=== PATIENT | female | born 1955 | race Caucasian/White ===

== ENCOUNTER 2022-01-26 12:55 | Emergency (ER) | payer SELFPAY ==
--- NOTE | ~2022-01-26 | XR_ITS ---
EXAMINATION: XR foot LT min 3V DATE: 01/26/2022 13:24 INDICATION: Lateral left foot pain. Fall from ladder. TECHNIQUE: 4 views of left foot were obtained. COMPARISON: None. FINDINGS: Bone alignment is normal. There is a comminuted fracture of diaphysis and proximal metaphys is of fifth proximal phalanx. The main distal fracture fragment demonstrates 1 mm plantar displacemen t. There is mild osteoarthritis of first metatarsophalangeal joint. There are enthesophytes at the po sterior and plantar aspects of calcaneus. IMPRESSION: 1. Comminuted fracture of fifth proximal phalanx. Reviewed, dictated and finalized at location [facility].
[2022-01-26 13:03] VITALS: BP 192/85; PULSE 89; RESP 16; TEMP 37; O2SAT 98
[2022-01-26 13:23] VITALS: BP 192/85; PULSE 89; RESP 16; TEMP 37; O2SAT 98
--- NOTE | 2022-01-26 13:31 | ED.LOWEXIN ---
HPI - Extremity Injury (Lower) General Chief Complaint: Extremity Injury, Lower Stated Complaint: left foot injury Time Seen by Provider: 01/26/22 13:32 Source: patient, family, RN notes reviewed and old records reviewed Mode of arrival: ambulatory Limitations: no limitations History of Present Illness HPI Narrative: 66 year old female presents to express care with pain to lateral aspect of left foot with swelling and bruising since yesterday evening. She reports tat she stepped off of a ladder and jammed her foot into the leg of the ladder. Point tenderness along the left lateral foot at the 5th metatarsal region. Patient reports that she has applied ice to her foot with increased pain with ambulation and any weight bearing. Patient reports that her pain is 8/10 is a constant ache. MD complaint: foot injury Onset (ago): hour(s) (yesterday evening) Type of Injury: blunt Severity scale (1-10): 8 Treatments prior to arrival: cold therapy Related Data Home Medications Medication Instructions Recorded Confirmed glipizide 10 mg tablet 20 mg PO DAILY 01/26/22 01/26/22 lisinopril 40 mg tablet 40 mg PO DAILY 01/26/22 01/26/22 lovastatin 40 mg tablet 40 mg PO DAILY 01/26/22 01/26/22 metformin 850 mg tablet 850 mg PO TID 01/26/22 01/26/22 Allergies Allergy/AdvReac Type Severity Reaction Status Date / Time No Known Allergies Allergy Verified 01/26/22 13:21 Review of Systems Review of Systems: CONSTITUTIONAL: Denies fever, chills, or sweats. EYES: Denies visual changes, redness, or discharge. ENT: Denies rhinorrhea, congestion, sore throat, or otalgia. CARDIOVASCULAR: Denies chest pain, palpitations, or edema. RESPIRATORY: Denies cough or dyspnea. GASTROINTESTINAL: Denies abdominal pain, nausea, vomiting, or diarrhea. GENITOURINARY: Denies dysuria or hematuria. SKIN: Denies rash or itching. MUSCULOSKELETAL: Denies back pain,left lateral foot pain and bruising or myalgia. NEUROLOGIC: Denies headache, numbness, or weakness. PSYCHIATRIC: Denies anxiety or depression. [facility] Past Medical History Medical History (Updated 01/27/22 @ 22:44 by Belinda Kirkland NP) Diabetes Elevated cholesterol Fracture of left hand Hypertension Surgical History Surgical History (Updated 01/27/22 @ 22:24 by Belinda Kirkland NP) No history of previous surgery Social History Social History (Updated 01/27/22 @ 22:26 by Belinda Kirkland NP) Smoking packs per day: 2 Smoking cigarettes per day: 40.0 Years smoked: 36 Smoking pack-years: 72.00 Smoking status: Current every day smoker Tobacco type: cigarettes Alcohol intake: current Alcohol use details: rare Substance use: never Living arrangements: with family Gender identity (if verbalized by the patient): Female Comments At time of signature, agree with nursing past medical, surgical, social and family history. There is no relevant family history pertinent to the presenting complaint Exam Narrative: GENERAL: Well-appearing, well-nourished, and in no acute distress. HEAD: Normocephalic, atraumatic. EYES: PERRLA and EOMI. ENT: Nares clear, no rhinorrhea or epistaxis. Mucous membranes moist.TM's normal with good light reflex, throat pink with no lesions or exudates or tonsil swelling NECK: Supple.no lymphadenopathy CHEST: Clear to auscultation. No respiratory distress.SAO2 98% on room air HEART: Regular rate and rhythm. No murmur heard. Normal peripheral pulses. ABDOMEN: Soft, nontender, nondistended, normal active bowel sounds. EXTREMITIES: Normal range of motion. No edema.Exception noted to left lateral foot which is bruised and swollen with tenderness along 5th metatarsal region, circulation and sensation is intact. SKIN: Warm, dry, no rash. NEURO: No focal deficits. Alert and oriented x3. Course Course Level of Care: Express Care Visit Vital Signs Vital signs: Vital Signs Temperature 37.0 C 01/26/22 13:03 Pulse Rate 89 01/26/22 13:03 Respiratory
== END 2022-01-26 14:20 | disposition home or self-care (01) ==
PROVIDERS: Emergency Provider Registered Nurse
DX: S92.512A Displaced fracture of proximal phalanx of left lesser toe(s), initial encounter for closed fracture (principal); W22.8XXA Striking against or struck by other objects, initial encounter; E11.9 Type 2 diabetes mellitus without complications; E78.00 Pure hypercholesterolemia, unspecified; I10 Essential (primary) hypertension; F17.210 Nicotine dependence, cigarettes, uncomplicated
CPT/HCPCS: 73630; 99214; G0463

== ENCOUNTER 2023-03-09 12:18 | Emergency (ER) | payer MEDICARE, SELFPAY ==
--- NOTE | ~2023-03-09 | XR_ITS ---
EXAMINATION: XR wrist RT min 3V DATE: 03/09/2023 12:38 INDICATION: Right wrist pain one day post injury TECHNIQUE: Posteroanterior, ulnar deviation, oblique, and lateral views of the right wrist were obtai ashly. COMPARISON: none FINDINGS: Bone alignment is normal. No fracture. 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 Soft tissues are unremarkable. IMPRESSION: 1. 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 No acute osseous abnormality. Reviewed, dictated and finalized at location A. IMPRESSION: 1. 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 No acute osse ous abnormality.
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
[2023-03-09 12:29] VITALS: BP 159/65; PULSE 101; RESP 18; TEMP 36.4; O2SAT 96
== END 2023-03-09 13:03 | disposition home or self-care (01) ==
PROVIDERS: Emergency Provider Nurse Practitioner; PCP Nurse Practitioner Family
DX: S60.211A Contusion of right wrist, initial encounter (principal); W22.8XXA Striking against or struck by other objects, initial encounter; M19.031 Primary osteoarthritis, right wrist; M18.11 Unilateral primary osteoarthritis of first carpometacarpal joint, right hand; F17.210 Nicotine dependence, cigarettes, uncomplicated; E11.9 Type 2 diabetes mellitus without complications; Z79.84 Long term (current) use of oral hypoglycemic drugs; E78.00 Pure hypercholesterolemia, unspecified; I10 Essential (primary) hypertension
CPT/HCPCS: 73110; 99213; G0463

== ENCOUNTER 2023-06-28 10:55 | Emergency (ER) | payer MEDICARE, SELFPAY ==
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
[2023-06-28 11:02] VITALS: BP 201/86; PULSE 100; RESP 16; TEMP 36.5; O2SAT 96
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
== END 2023-06-28 11:47 | disposition home or self-care (01) ==
PROVIDERS: Emergency Provider Registered Nurse; PCP Nurse Practitioner Family
DX: S20.219A Contusion of unspecified front wall of thorax, initial encounter (principal); E11.9 Type 2 diabetes mellitus without complications; F17.210 Nicotine dependence, cigarettes, uncomplicated; Z79.84 Long term (current) use of oral hypoglycemic drugs; Z79.899 Other long term (current) drug therapy; W50.0XXA Accidental hit or strike by another person, initial encounter; Y92.009 Unspecified place in unspecified non-institutional (private) residence as the place of occurrence of the external cause; Y99.0 Civilian activity done for income or pay
CPT/HCPCS: 71101; 99213; G0463

== ENCOUNTER 2025-07-04 14:41 | Emergency (ER) | payer MEDICARE, SELFPAY ==
--- NOTE | ~2025-07-04 | XR_ITS ---
EXAMINATION: XR shoulder LT min 2V, 07/04/2025 15:10 PARTS CASTING MACHINE OPERATOR HISTORY: NKI, PROX HUMERUS PAIN W/MOVEMENT REFERRING DOWN COMPARISON: No comparisons available. Findings: No acute fracture or malalignment. No significant degenerative changes. Soft tissues unremarkable. Impression: No acute fracture or malalignment. Reviewed, dictated and finalized at location P. S CASTING MACHINE OPERATOR Impression: No acute fracture or malalignment.
--- OUTSIDE RECORDS SUMMARY | 2025-07-04 14:45 | XMS_ITS | Clinical Summary ---
Author Organization [facility] Address [address] [place] [id number] Phone Care Team Providers Care Rehab Manager Name Role Phone Unavailable Primary Care Provider Unavailabl e Medications SITagliptin (JANUVIA) 100 MG tablet 1 tab once daily 0 12/27/2017 Active lovastatin (MEVACOR) 40 MG tablet one tab daily 0 12/26/2017 Active glipiZIDE (GLUCOTROL XL) 10 MG 24 hr tablet two tabs daily 0 12/26/2017 Active metFORMIN (GLUCOPHAGE) 850 MG tablet one tab three times daily 0 12/26/2017 Active aspirin (ASPIRIN ADULT LOW DOSE) 81 MG EC tablet one tab daily 0 12/26/2017 Active lisinopril (PRINIVIL,ZESTRI L) 40 MG tablet One daily 11 04/11/2018 Act aki Active Problems Problem Noted Date Diagnosed Date Type 2 diabetes mellitus wit h other diabetic kidney complication 04/11/2018 Proteinuria 12/26/2017 Vitamin D deficiency 12/26/2017 Hyperlipidemia 12/26/2017 Essential (primary) hypertension 12/26/2017 Social History Tobacco Use Types Packs/Day Years Used Date Smoking Tobacco: Every Day Alcohol Use Standard Drinks/Week Comments Yes 0 (1 standard drink = 0.6 oz pure alcohol) Alcoholic Drinks/day: occasionally Comments Unknown Sex and Gender Information Value Date Recorded Sex Assigned at Not on file Legal Sex Female 9:33 AM [facility] Gender Identity Not on file Sexual Orientation Not on file Last Filed Vital Signs Vital Sign Reading Time Taken Comments Blood Pressure 179/81 04/11/2018 12:01 AM CDT Si tting, Left Pulse 87 04/11/2018 12:01 AM CDT Brac hial Temperature - - Respiratory Rate - - Oxygen Saturation - - Inhaled Oxygen Concentration - - Weight 78 kg (172 lb) 04/11/2018 12:01 AM CDT Height 165.1 cm (5' 5) 04/11/2018 12:01 AM CDT Body Mass Index 28.62 04/11/2018 12:01 AM CDT Plan of Treatment Health Maintenance Due Date Last Done Comments Pneumococcal PPSV23/PCV13 65 + Years / Low and Medium Risk (1 of 2 - PCV) 10/18/2007 Influenza Vaccine (#1) 2025
--- OUTSIDE RECORDS SUMMARY | 2025-07-04 14:45 | XMS_ITS | Data Portability ---
Author Organization [facility] Address [address] [place] [place] [address] Care Team Providers Care Emergency Medicine Physician Assistant Name Role Phone ANDRAE, ZAK Primary Care Provider Assessment Encounter Date Assessment Date Assessment LastModified by Organization Details LastModified Time 04/24/2024 04/24/2024 Ms Ivy presented in office today for follow appointment. Not available 04/29/2024 10:59:50 08/21/2024 08/21/2024 Ms. Ivy is here for a follow-up, reporting no new symptoms or concerns. No changes in health since the last visit. Not available 09/16/2024 15:21:22 09/18/2024 09/18/2024 Ms. Ivy presents in office today for follow up appointment. Not available 10/05/2024 18:14:32 01/15/2025 01/15/2025 Ms. Ivy is here for a follow-up, reporting no new symptoms or concerns. No changes in health since the last visit. Not available 01/17/2025 09:17:30 03/17/2025 03/17/2025 Ms. Ivy presents for follow-up and Medicare Annual Wellness Visit. She reports experiencing intermittent weakness and numbness in the left arm over the past several weeks. She denies associated pain, trauma, or recent injury. The symptoms are not constant but occur sporadically throughout the day. Patient suspects the symptoms may be related to a prior rotator cuff injury. No recent changes in activity or known aggravating or relieving factors. No associated neck pain, chest pain, or systemic symptoms reported. Not available 03/17/2025 16:22:19 Plan of Treatment Reminders Order Date Submit Date Provider Last Modified By Organization Details Last Modified Time Details Appointments ANY 15 2025 02:45P M ZAK ABEBE, YAKELIN Not available Not available Not available Lab CMP, serum or plasma 2024 025 [facility], [address] [facility], [place], [address], 03/18/2025 12:12:18 CBC w/ auto diff 2024 025 [facility], [address] [facility], [place], [address], 03/18/2025 12:12:19 vitamin D, 25-hydro xy, total, serum 2024 025 [facility], [address] [facility], [facility] [address], [place], [address], 03/18/2025 12:12:21 microalb umin/cre atinine, mass ratio, urine 2024 025 [facility], [address] [facility], [facility] [address], [place], [address], 03/18/2025 12:12:16 lipid panel, serum 2024 025 [facility], [address] [facility], [facility] [address], [place], [address], 03/18/2025 12:12:17 Referral None recorded . Procedures None recorded . Surgeries None recorded . Imaging CT, head + brain, w/o contrast 2024 025 [facility], [address] [place], [address], 05/17/2025 00:55:30 US, duplex, carotid artery [address] [address] [place], [address], 04/10/2025 17:42:17 XR, arthrogr am, shoulder 2024 025 [facility], [address] [facility], [place], [address], 06/17/2025 15:56:10 Medication Orders hydrochl orothiaz chevy 12.5 mg tablet 2024 025 [facility], [address] [place] [address], [address], 08/21/2024 16:06:21 Patient TargetsNo targets recorded. Patient Instructions Encounter Date Encounter Id Patient Instructions Last Modified By Organization Details Last Modified Time 04/24/2024 [id number] - Always present to ER or Urgent Care with any progression of/alarming symptoms, significant changes in symptoms or any concerning or urgent matters Not available 04/29/2024 10:59:46 08/21/2024 [id number] Quitting Tobacco : Care Instructions Not available 09/16/2024 15:23:26 - Always present to ER or Urgent Care with any progression of/alarming symptoms, significant changes in symptoms or any concerning or urgent matters Not available 08/21/2024 16:03:45 09/18/2024 [id number] Quitting Tobacco : Care Instructions Not available 10/05/2024 18:11:48 A healthy lifestyle: care instructions Not available 10/05/2024 18:11:48 - Always present to ER or Urgent Care with any progression of/alarming symptoms, significant changes in symptoms or any concerning or urgent matters Not available 10/05/2024 18:14:55 01/15/2025 [id number] - Always present to ER or Urgent Care with any progression of/alarming symptoms, significant changes in symptoms or any concerning or urgent matters Not available 01/17/2025 09:12:20 03/17/2025 [id number] advance care planning: care instructions Not available 03/17/2025 15:43:02 preventing falls : care instructions Not available 03/17/2025 15:43:02 Quitting Tobacco : Care Instructions Not available 03/17/2025 15:43:02 Medicare Wellnes s Preventive Checklist Not available 03/17/2025 15:43:02 eating healthy foods: care instructions Not available 03/17/2025 15:43:02 AD8 Dementia Screening Interview Not available 03/17/2025 15:43:02 - Always present to ER or Urgent Care with any progression of/alarming symptoms, significant changes in symptoms or any concerning or urgent matters Not available 03/17/2025 16:02:38 Reason for Referral None Reported. Results Created Date Observation Date Name Description Value Unit Range Abnormal Flag Note LastModifiedBy Organization Detail LastModifiedTime 07/30/20 24 07/30/2024 Hemog lobin A1c/H emogl obin. total in Blood hemoglobin A1C/hemoglob in.total in blood 8.4 % low: 4%high : 6% abnormal HGB-A 1C 8.4 (A) 4 - 6 % Not Available Not Available 11/12/2024 12:11:43 07/30/20 24 07/30/2024 Hemog lobin A1c/H emogl obin. total in Blood interpretati on and review of laboratory results Abnorm al Not Available Not Available 12:11:43 10/30/19 25 10/29/2024 Hemog lobin A1c/H emogl obin. total in Blood hemoglobin A1C/hemoglob in.total in blood 8.3 % low: 4%high : 6% abnormal HGB-A 1C 8.3 (A) 4 - 6 % Not Available Not Available 11/12/2024 12:12:43 10/30/19 25 10/29/2024 Hemog lobin A1c/H emogl obin. total in Blood interpretati on and review of laboratory results Abnorm al Not Available Not Available 12:12:43 01/31/20 25 01/30/2025 Hemog lobin A1c/H emogl obin. total in Blood hemoglobin A1C/hemoglob in.total in blood 7.3 % low: 4%high : 6% abnormal Not Available Not Available 03/17/2025 04:55:11 01/31/20 25 01/30/2025 Hemog lobin A1c/H emogl obin. total in Blood interpretati on and review of laboratory results Abnorm al Not Available Not Available 04:55:11 03/17/2003/18/2025 ALBUM IN/CR EAT RATIO , RANDO M UR creatinine, urine 17.2 mg/dL notest ab. Not Available [facility] ([email or web address] [email or web address]) [address] [place], [address], 03/18/2025 12:12:16 03/17/20 25 03/18/2025 ALBUM IN/CR EAT RATIO , RANDO M UR albumin, urine <3.0 ug/mL notest ab. Not Available [facility] ([email or web address] [email or web address]) [address] [place], [address], 03/18/2025 12:12:16 03/17/20 25 03/18/2025 ALBUM IN/CR EAT RATIO , RANDO M UR alb/creat ratio <17 Nolvia l: 0 - 29 Moder ately incre ased: 30 - 300 Sever komal incre ased: >300 Not Available [facility] ([email or web address] [email or web address]) [address] [place], [address], 03/18/2025 12:12:16 03/17/20 25 03/18/2025 LIPID PANEL cholesterol, total 142 mg/dL 100-19 9 Not Available [facility] ([email or web address] [email or web address]) [address] [place], [address], 03/18/2025 12:12:17 03/17/20 25 03/18/2025 LIPID PANEL triglyceride s 283 mg/dL 0-149 above high normal Not Available [facility] ([email or web address]) [address] [place], [address], 03/18/2025 12:12:17 03/17/20 25 03/18/2025 LIPID PANEL HDL cholesterol 37 mg/dL >39 below low normal Not Available [facility] ([email or web address]) [address] [place], [address], 03/18/2025 12:12:17 03/17/20 25 03/18/2025 LIPID PANEL VLDL cholesterol sunil 45 mg/dL 5-40 above high normal Not Available [facility] ([facility]) [address] [place], [address], 03/18/2025 12:12:17 03/17/20 25 03/18/2025 LIPID PANEL LDL chol calc ([facility]) 60 mg/dL 0-99 Not Available [facility] ([facility]) [address] [place], [address], 03/18/2025 12:12:17 03/17/20 25 03/18/2025 COMP. METAB OLIC PANEL (14) glucose 221 mg/dL 70-99 above high normal Not Available [facility] ([facility]) [address] [place], [address], 03/18/2025 12:12:18 03/17/20 25 03/18/2025 COMP. METAB OLIC PANEL (14) BUN 9 mg/dL 8-27 Not Available [facility] ([facility]) [address] [place], [address], 03/18/2025 12:12:18 03/17/20 25 03/18/2025 COMP. METAB OLIC PANEL (14) creatinine 0.56 mg/dL 0.57-1 .00 below low normal Not Available [facility] ([facility]) [address] [place], [address], 03/18/2025 12:12:18 03/17/20 25 03/18/2025 COMP. METAB OLIC PANEL (14) eGFR 100 mL/mi n/1.7 3 >59 Not Available [facility] ([facility]) [address] [place], [address], 03/18/2025 12:12:18 03/17/20 25 03/18/2025 COMP. METAB OLIC PANEL (14) BUN/creatini ne ratio 16 12-28 Not Available [facility] ([facility]) [address] [facility] [place], [address], 03/18/2025 12:12:18 03/17/20 25 03/18/2025 COMP. METAB OLIC PANEL (14) sodium 131 mmol/ L 134-14 4 below low normal Not Available [facility] ([facility]) [address] [facility] [place], [address], 03/18/2025 12:12:18 03/17/20 25 03/18/2025 COMP. METAB OLIC PANEL (14) potassium 4.2 mmol/ L 3.5-5. 2 Not Available [facility] ([facility]) [address] [facility] [place], [address], 03/18/2025 12:12:18 03/17/20 25 03/18/2025 COMP. METAB OLIC PANEL (14) chloride 97 mmol/ L 96-106 Not Available [facility] ([facility]) [address] [facility] [place], [address], 03/18/2025 12:12:18 03/17/20 25 03/18/2025 COMP. METAB OLIC PANEL (14) carbon dioxide, total 18 mmol/ L 20-29 below low normal Not Available [facility] ([facility]) [address] [facility] [place], [address], 03/18/2025 12:12:18 03/17/20 25 03/18/2025 COMP. METAB OLIC PANEL (14) calcium 10.5 mg/dL 8.7-10 .3 above high normal Not Available [facility] ([facility]) [address] [facility] [place], [address], 03/18/2025 12:12:18 03/17/20 25 03/18/2025 COMP. METAB OLIC PANEL (14) protein, total 6.8 g/dL 6.0-8. 5 Not Available [facility] ([facility]) [address] [facility], [place], [address], 03/18/2025 12:12:18 03/17/20 25 03/18/2025 COMP. METAB OLIC PANEL (14) albumin 4.7 g/dL 3.9-4. 9 Not Available [facility] ([facility]) [address] [facility], [place], [address], 03/18/2025 12:12:18 03/17/20 25 03/18/2025 COMP. METAB OLIC PANEL (14) globulin, total 2.1 g/dL 1.5-4. 5 Not Available [facility] ([facility]) [address] [facility], [place], [address], 03/18/2025 12:12:18 03/17/20 25 03/18/2025 COMP. METAB OLIC PANEL (14) bilirubin, total <0.2 mg/dL 0.0-1. 2 Not Available [facility] ([facility]) [address] [facility], [place], [address], 03/18/2025 12:12:18 03/17/20 25 03/18/2025 COMP. METAB OLIC PANEL (14) alkaline phosphatase 70 IU/L 44-121 Not Available [facility] ([facility]) [address] [facility], [place], [address], 03/18/2025 12:12:18 03/17/20 25 03/18/2025 COMP. METAB OLIC PANEL (14) AST (SGOT) 18 IU/L 0-40 Not Available [facility] ([facility]) [address] [facility], [place], [address], 03/18/2025 12:12:18 03/17/20 25 03/18/2025 COMP. METAB OLIC PANEL (14) ALT (SGPT) 11 IU/L 0-32 Not Available [facility] ([facility]) [address] [facility], [place], [address], 03/18/2025 12:12:18 03/17/2003/18/2025 CBC WITH DIFFE RENTI AL/PL ATELE T WBC 10.6 x10e3 /uL 3.4-10 .8 Not Available [facility] ([facility]) [address] [facility], [place], [address], 03/18/2025 12:12:19 03/17/2003/18/2025 CBC WITH DIFFE RENTI AL/PL ATELE T RBC 4.98 x10e6 /uL 3.77-5 .28 Not Available [facility] ([facility]) [address] [place], [address], 03/18/2025 12:12:19 03/17/2003/18/2025 CBC WITH DIFFE RENTI AL/PL ATELE T hemoglobin 15.8 g/dL 11.1-1 5.9 Not Available [facility] ([facility]) [address] [place], [address], 03/18/2025 12:12:19 03/17/2003/18/2025 CBC WITH DIFFE RENTI AL/PL ATELE T hematocrit 47.8 % 34.0-4 6.6 above high normal Not Available [facility] ([facility]) [address] [place], [address], 03/18/2025 12:12:19 03/17/2003/18/2025 CBC WITH DIFFE RENTI AL/PL ATELE T MCV 96 fL 79-97 Not Available [facility] ([facility]) [address] [place], [address], 03/18/2025 12:12:19 03/17/2003/18/2025 CBC WITH DIFFE RENTI AL/PL ATELE T MCH 31.7 pg 26.6-3 3.0 Not Available [facility] ([facility]) [address] [place], [address], 03/18/2025 12:12:19 03/17/2003/18/2025 CBC WITH DIFFE RENTI AL/PL ATELE T MCHC 33.1 g/dL 31.5-3 5.7 Not Available [facility] ([facility]) [address] [facility], [place], [address], 03/18/2025 12:12:19 03/17/2003/18/2025 CBC WITH DIFFE RENTI AL/PL ATELE T RDW 11.4 % 11.7-1 5.4 below low normal Not Available [facility] ([facility]) [address] [facility], [place], [address], 03/18/2025 12:12:19 03/17/2003/18/2025 CBC WITH DIFFE RENTI AL/PL ATELE T platelets 404 x10e3 /uL 150-45 0 Not Available [facility] ([facility]) [address] [facility], [place], [address], 03/18/2025 12:12:19 03/17/2003/18/2025 CBC WITH DIFFE RENTI AL/PL ATELE T neutrophils 58 % notest ab. Not Available [facility] ([facility]) [address] [facility], [place], [address], 03/18/2025 12:12:19 03/17/2003/18/2025 CBC WITH DIFFE RENTI AL/PL ATELE T lymphs 31 % notest ab. Not Available [facility] ([facility]) [address] [facility], [place], [address], 03/18/2025 12:12:19 03/17/2003/18/2025 CBC WITH DIFFE RENTI AL/PL ATELE T monocytes 7 % notest ab. Not Available [facility] ([facility]) [address] [place], [address], 03/18/2025 12:12:19 03/17/2003/18/2025 CBC WITH DIFFE RENTI AL/PL ATELE T eos 3 % notest ab. Not Available [facility] ([facility]) [address] [facility], [place], [address], 03/18/2025 12:12:19 03/17/2003/18/2025 CBC WITH DIFFE RENTI AL/PL ATELE T basos 1 % notest ab. Not Available [facility] ([facility]) [address] [facility], [place], [address], 03/18/2025 12:12:19 03/17/2003/18/2025 CBC WITH DIFFE RENTI AL/PL ATELE T neutrophils (absolute) 6.1 x10e3 /uL 1.4-7. 0 Not Available [facility] ([facility]) [address] [place], [address], 03/18/2025 12:12:19 03/17/2003/18/2025 CBC WITH DIFFE RENTI AL/PL ATELE T lymphs (absolute) 3.3 x10e3 /uL 0.7-3. 1 above high normal Not Available [facility] ([facility]) [address] [place], [address], 03/18/2025 12:12:19 03/17/2003/18/2025 CBC WITH DIFFE RENTI AL/PL ATELE T monocytes(ab solute) 0.8 x10e3 /uL 0.1-0. 9 Not Available [facility] ([facility]) [address] [place], [address], 03/18/2025 12:12:19 03/17/2003/18/2025 CBC WITH DIFFE RENTI AL/PL ATELE T eos (absolute) 0.4 x10e3 /uL 0.0-0. 4 Not Available [facility] ([facility]) [address] [place], [address], 03/18/2025 12:12:19 03/17/2003/18/2025 CBC WITH DIFFE RENTI AL/PL ATELE T baso (absolute) 0.1 x10e3 /uL 0.0-0. 2 Not Available [facility] ([facility]) [address] [facility], [place], [address], 03/18/2025 12:12:19 03/17/2003/18/2025 CBC WITH DIFFE RENTI AL/PL ATELE T immature granulocytes 0 % notest ab. Not Available [facility] ([facility]) [address] [facility], [place], [address], 03/18/2025 12:12:19 03/17/2003/18/2025 CBC WITH DIFFE RENTI AL/PL ATELE T immature grans (abs) 0.0 x10e3 /uL 0.0-0. 1 Not Available [facility] ([facility]) [address] [facility], [place], [address], 03/18/2025 12:12:19 03/17/2003/18/2025 VITAM IN D, 25-HY DROXY vitamin D, 25-hydroxy 28.1 NG/mL 30.0-1 00.0 below low normal Vitam in D defic iency has been defin ed by the Insti tute of Medic ine and an Endoc rine Socie ty pract ice guide line as a level of serum 25-OH vitam in D less than 20 ng/mL (1,2) . The Endoc rine Socie ty went on to furth er defin e vitam in D insuf ficie ncy as a level betwe en 21 and 29 ng/mL (2). 1. IOM (Inst itute of Medic ine). 2010. Dieta ry refer ence intak es for calci um and D. Alfonso christine DC: The [facility] Press . 2. Ericka maya MF, Baltazar garduno [place], [place] off-F errar i PICKETT, et al. Evalu ation , treat ment, and preve ntion of vitam in D defic iency : an Endoc rine Socie ty clini sunil pract ice guide line. JCEM. 2010; 96(7) :1911 -30. Not Available [facility] ([facility]) [address] [facility], [place], [address], 03/18/2025 12:12:21 05/02/20 25 05/02/2025 HbA1c (hemo globi n A1c), blood HbA1C (hemoglobin A1C), blood 7 % low: 4%high : 6% abnormal Not Available Not Available 05/12/2025 15:43:10 05/02/20 25 05/02/2025 HbA1c (hemo globi n A1c), blood lab interpretati on Abnorm al Not Available Not Available 15:43:10 04/10/20 25 04/01/2025 US, samir x, kylah id arter y No observ ation record ed. [address] [place], [address], 04/15/2025 11:12:24 05/17/20 25 05/16/2025 CT, head + brain , w/o contr ast No observ ation record ed. [address] [place], [address], 05/22/2025 09:58:15 Result Notes None recorded. Problems Name Problem SNOMED Code Status Onset Date Resolution Date Notes Provider Name and Address Organization Details Recorded Time Hyperlipi demia 49729519 Active ZAK ABEBE NP Attn: Samy ortiz,[address] [facility], [place], [address], [facility] 2 09:48:17 Diabetes mellitus 60857184 Active ZAK ABEBE NP Attn: Samy g,[address] [facility], [place], [address], [facility] - [facility] 2 09:48:17 Chronic obstructi ve pulmonary disease 58431336 Active Myron slater, [place] - [facility] 6 10:30:50 Smoker 27354955 Completed 08/28/2019 Angelika Moya null, [place] - [facility] 0 10:53:03 Vitamin D deficienc y 57412128 Active Myron Moon [place], [place] - [facility] 4 11:56:54 Hypertens aki disorder 53867868 Active 2015 Arianna Ayala RN [place] - [facility] 7 15:23:13 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 Angeilka Moya [place] - [facility] 8 23:53:52 Adult health examinati on Active 2017 Angel[place] [facility] 8 23:58:30 Body mass index 25-29 - overweigh t 102662335 Active 2017 ZAK ABEBE NP Attn: Samy ortiz,[address] [place], [address], [place] - [facility] 2 09:48:17 Biceps tendiniti s 282045072 Active 2017 Angelika [place] [facility] 8 12:09:55 Osteoarth ritis 772646095 Active 2018 Angel[place] [facility] 9 16:47:24 Tobacco user 793194598 Active 2019 ZAK ABEBE NP Attn: Samy g,[address] [place], [address], [place] - [facility] 2 09:48:16 Well controlle d type 2 diabetes mellitus 000036312 Active 2019 ZAK ABEBE NP Attn: Samy g,[address] [place], [address], [place] - [facility] 2 09:48:17 Noncompli ance with medicatio n regimen 998512558 Active 2022 ZAK ABEBE NP Attn: Samy g,[address] [place], [address], [place] - [facility] 3 15:33:49 Overweigh t 383938069 Active 2022 ZAK ABEBE NP Attn: Samy ortiz,[address] [facility], [place], [address], [place] - [facility] 3 15:36:55 Uncontrol led type 2 diabetes mellitus 194841803 Active 2022 ZAK ABEBE NP Attn: Samy ortiz,[address] [facility], [place], [address], [place] [facility] 4 14:58:07 [place] py declined 328293934179 100 Active 2023 ZAK ABEBE NP Attn: Samy ortiz,[address] [facility], [place], [address], [place] - [facility] 4 10:43:38 HIV screening declined 698951534537 100 Active 2023 ZKA ABEBE NP Attn: Samy ortiz,[address] [facility], [place], [address], [place] - [facility] 4 21:14:32 Pain of left shoulder joint 255142129465 [address]5824 Active 2024 ZAK ABEBE NP Attn: Samy ortiz,[address] [facility], [place], [address], [place] - [facility] 5 21:50:46 Problem Notes None recorded. Medical Equipment None Reported. Allergies No known drug allergies Medications Name Sig Start Date Stop Date Status Note LastModified by Organization Details LastModified Time cyclobenza silvia 10 mg tablet TAKE 1 TABLET BY MOUTH THREE TIMES DAILY NEEDED 06/25 completed Not Available Not Available Not Available glipizide ER 10 mg tablet, extended release 24 hr TAKE 1 TABLET BY MOUTH TWICE DAILY 2024 active Not Available Not Available Not Avai lable lisinopril 20 mg tablet TAKE 1 TABLET BY MOUTH ONCE DAILY DIRECTED 06/01 completed Not Available Not Available Not Available prednisone 20 mg tablet TAKE 1 TABLET BY MOUTH TWICE DAILY 08/24 completed Not Available Not Available Not Available lovastatin 40 mg tablet Take 1 tablet by mouth once daily 2024 active Not Available Not Available Not Avai lable lidocaine 4 % topical cream Apply 1 applicat ion twice a day by topical route as needed. 08/28 completed Not Available Not Available Not Available metformin 850 mg tablet TAKE 1 TABLET BY MOUTH THREE TIMES DAILY WITH A MEAL 2024 active Not Available Not Available Not Avai lable amlodipine 5 mg tablet TAKE 1 TABLET BY MOUTH ONCE DAILY 03/21 completed Not Available Not Available Not Available Glucotrol XL 5 mg tablet,ext ended release Take 1 tablet every day by oral route. 12/10 completed Not Available Not Available Not Available Tessalon Perles 100 mg capsule Take 1 capsule 3 times a day by oral route as needed. 08/29 completed Not Available Not Available Not Available amlodipine 10 mg tablet Take 1 tablet by mouth once daily 2024 active Not Available Not Available Not Avai lable metformin 1,000 mg tablet TAKE ONE TABLET BY MOUTH TWICE DAILY WITH MEALS 08/30 completed Not Available Not Available Not Available lisinopril 30 mg tablet TAKE 1 TABLET BY MOUTH ONCE DAILY 01/27 completed Not Available Not Available Not Available Aspir-81 mg tablet,del ayed release Take 1 tablet every day by oral route. 08/24 completed Not Available Not Available Not Available Vitamin D2 1,250 mcg (50,000 unit) capsule Take 1 capsule every week by oral route. 01/31 completed Not Available Not Available Not Available lisinopril 40 mg tablet Take 1 tablet by mouth once daily 2024 active Not Available Not Available Not Avai lable Spiriva with HandiHaler 18 mcg and inhalation capsules Inhale 1 capsule every day by inhalati on route. 11/19 completed Not Available Not Available Not Available Januvia 100 mg tablet TAKE ONE TABLET BY MOUTH EVERY DAY 02/23 completed Not Available Not Available Not Available hydrochlor othiazide 12.5 mg tablet Take 1 tablet by mouth once daily active Not Available Not Available No t Available Mucinex 1,200 mg tablet, extended release Take 1 tablet twice a day by oral route as directed . 08/29 completed Not Available Not Available Not Available Tudorza Pressair 400 mcg/actuat ion breath activated Inhale 1 puff every 12 hours by inhalati on route for 60 days. 08/30 completed 2 month sample issued Not Available Not Available Not Available Invokana 100 mg tablet TAKE ONE TABLET BY MOUTH EVERY DAY 03/21 completed Not Available Not Available Not Available Jardiance 25 mg tablet TAKE ONE TABLET BY MOUTH EVERY DAY 05/13 completed Not Available Not Available Not Available Flonase Allergy Relief 50 mcg/actuat ion nasal spray,susp ension [place] 1 spray every day by intranas al route. 08/29 completed Not Available Not Available Not Available ProAir RespiClick 90 mcg/actuat ion breath activated Inhale 2 puffs every 4-6 hours by inhalati on route as needed. 06/25 completed Not Available Not Available Not Available Rybelsus 3 mg tablet Take 1 tablet every day by oral route for 30 days. 05/02 completed Not Available Not Available Not Available Vitals Date Recorded Body height Body mass index (BMI) Body weight Oxygen saturation Heart rate Respiratory rate Body temperature Systolic And Diastolic Provider Name and Address Organization Details Last Updated DateTime 5 165.1 cm 25.8 kg/m2 77613.2 2 g 94 % 98 /min 18 /min 97 [degF] 150/74 mm[Hg] Janet Bermudez LPN [place] - [facility] 5 15:47:06 Date Recorded Body height Body mass index (BMI) Body weight Oxygen saturation Heart rate Respiratory rate Body temperature Systolic And Diastolic Provider Name and Address Organization Details Last Updated DateTime 5 165.1 cm 25.1 kg/m2 04880.4 5 g 95 % 101 /min 16 /min 97.1 [degF] 122/79 mm[Hg] Sho Zavala MA [place] - [facility] 5 15:36:48 Date Recorded Body height Respiratory rate Body mass index (BMI) Body weight Body temperature Heart rate Oxygen saturation Systolic And Diastolic Provider Name and Address Organization Details Last Updated DateTime 5 165.1 cm 16 /min 24.5 kg/m2 97367.8 8 g 97.1 [degF] 91 /min 97 % 147/77 mm[Hg] Faviola Palacio MA [facility] 5 15:28:09 Date Recorded Body height Respiratory rate Body mass index (BMI) Body weight Body temperature Heart rate Oxygen saturation Systolic And Diastolic Provider Name and Address Organization Details Last Updated DateTime 5 165.1 cm 16 /min 25 kg/m2 75256.9 6 g 96.6 [degF] 91 /min 95 % 116/74 mm[Hg] Faviola Palacio MA [facility] 5 15:38:10 Date Recorded Body height Body mass index (BMI) Body weight Respiratory rate Oxygen saturation Heart rate Body temperature Systolic And Diastolic Provider Name and Address Organization Details Last Updated DateTime 4 165.1 cm 27.1 kg/m2 11935.2 g 18 /min 93 % 84 /min 97.2 [degF] 119/73 mm[Hg] BAUTISTA Mills [facility] 4 15:52:39 Social History Question Answer Notes LastModified by Organizat ion Details LastModified Time Tobacco Smoking Status Current Every Day Smoker Xiomara Najera MA [facility], [place] - [facility] 01/26/2021 10:41:54 Are You Blind Or Do You Have Difficulty Seeing? Yes Reading Glasses Information not available 01/26/2021 What Is Your Level Of Caffeine Consumption? Moderate 3 Cups Coffee Per Day 1 Diet Soda [email or web address] Information not available 09/18/2024 In The 14 Days Before Symptom Onset, Have You Had Close Contact With A Laboratory-confir med COVID-19 While That Case Was Ill? No Information not available 07/28/2021 In The 14 Days Before Symptom Onset, Have You Had Close Contact With A Person Who Is Under Investigation For COVID-19 While That Person Was Ill? No Information not available 07/28/2021 Have You Been To An Area Known To Be High Risk For COVID-19? No Information not available 07/28/2021 Are You Deaf Or Do You Have Serious Difficulty Hearing? No Information not available 01/26/2021 What Type Of Diet Are You Following? REGULAR Information not available 07/28/2021 Which Illicit Or Recreational Drugs Have You Used? Pt Denies [email or web address] Information not available 08/29/2017 Are There Any Guns Present In Your Home? No [email or web address] Information not available 07/18/2014 Live Alone Or With Others? With Others Information not available 07/18/2014 Do You Have A High School Diploma Or Higher Education? Yes Information not available 01/26/2021 Do You Sometimes Have To Miss Your Medical Appointments Due To Difficult Getting Transportation? No Information not available 01/26/2021 Do You Feel Unfairly Treated Due To Things Such As Race, Age, Gender, Disability Or Some Other Reason? No Information not available 01/26/2021 Do You Feel Physically And Emotionally Safe While Living At Home? Yes Information not available 01/26/2021 Do You Feel Physically And Emotionally Safe In Your Neighborhood Or Other Public Places? Yes Information not available 01/26/2021 What Was The Date Of Your Most Recent Tobacco Screening? 03/17/2025 Information not available 03/17/2025 What Is Your Current Pack Years? [email or web address] years Information not available 10/20/2022 What Is Your Relationship Status? Information not available 01/26/2021 Do You Use Your Seat Belt Or Car Seat Routinely? Yes Information not available 07/28/2021 Smoke Alarm In Home Yes [email or web address] Information not available 07/18/2014 Do You Have Smoke And Carbon Monoxide Detectors In Your Home? Yes Information not available 01/26/2021 At What Age Did You Start Smoking Tobacco? 18 [email or web address] Information not available 07/18/2014 Are You Passively Exposed To Smoke? Yes Information no t available 01/26/2021 How Much Tobacco Do You Smoke? 2 PPD little Less Sometimes [email or web address] Information not available 04/24/2024 Do You Use Sunscreen Routinely? Yes Information not available 07/18/2014 Has Tobacco Cessation Counseling Been Provided? Yes Information not available 01/26/2021 On What Date Was Tobacco Cessation Counseling Provided? 03/17/2025 Information not available 03/17/2025 How Many Years Have You Smoked Tobacco? 49 Information not available 10/20/2022 Sex: Female Functional Status Question Answer Note LastModified by Organizat ion Details LastModified Time Do you use any illicit or recreational drugs? No Information not available 01/26/2021 Do you or have you ever used any other forms of tobacco or nicotine? No Information not available 01/26/2021 What is your level of alcohol consumption? None clean Xs 6mo Information not available 01/26/2021 Are you currently employed? No Information not available 01/26/2021 Are you able to care for yourself independently? Yes [email or web address] Information not available 07/18/2014 What is your exercise level? Moderate Gym Information not available 02/23/2022 Mental Status Question Answer Note LastModified by Organization D etails LastModified Time Do you feel stressed (tense, restless, nervous, or anxious, or unable to sleep at night)? [id number] Information not available 01/26/2021 Family History Relationship Description Onset Age of this Age Resolved Age Notes LastModified by Organization Details LastModified Time Mother Diabetes mellitus [email or web address] Not available 07/18 11:27:45 Mother Malignant neoplasm of stomach 80 [email or web address] Not available 2017 12:01:09 Father Heart disease 60 [email or web address] Not available 2017 12:00:43 Medical History Condition Response Coronary Artery Disease N Other N High Blood Pressure Y Atrial Fibrillation N Thyroid Problems N Kidney or Bladder Problems N GI Problems N Depression N COPD N Blood Clots N Skin Problems N Eating Disorder N Anemia N Heart Attack (ME) N Anxiety Disorder N Diabetes Y Muscle, Joint, or Bone Problems N Seizures/Epilepsy N Acid Reflux (GERD) N Cancer N Stroke N Asthma N Allergies N ADHD N Substance Abuse N High Cholesterol Y Hepatitis N Liver Disease N Schizophrenia N Headaches N Heart Failure N Osteoporosis N Gynecological HistoryNo gynecological history recorded. Obstetrics History GPAL:G 0 P 0 0 0 0 Immunizations Vaccine Type Date Status Note Provider Nam e and Address Organization Details Recorded Time COVID-19 vaccine, vector-nr, rS-Ad26, PF, 0.5 mL 1 completed ZAK ABEBE NP Attn: Accounting,[address] , [place], [address], [facility] - [facility] 01/19/2023 10:53:38 pneumococcal polysaccharide PPV23 5 completed Not Available [facility] 08/31/2019 02:29:46 Past Encounters Encounter ID Performer Location Encounter Start Date Encounter Closed Date Diagnosis/Indication Diagnosis SNOMED-CT Code Diagnosis ICD10 Code Diagnosis IMO Codes Diagnosis Note MD [place] [facility] [address] [place] [address] 07/18/2014 10:39:27 07/18/2014 11:58:40 Diabetes mellitus 11038947 Smoker 29782788 Vitamin D deficiency 27766814 [id number] MD [place] Mcrae ([facility] [address] [place] [address] 12/09/2014 10:57:52 12/09/2014 12:35:39 Adult health examination 077218847 Diabetes mellitus 49976599 Smoker 25728887 [id number] MD [place] Mcrae ([facility] [address] [place] [address] 04/10/2015 10:29:20 04/10/2015 11:22:11 Diabetes mellitus 48030209 Chronic ob structive pulmonary disease 65651686 down to 3 cigarettes daily. plans to quit. [id number] MD [place] Mcrae ([facility] [address] [place] [address] 08/18/2015 09:25:19 08/18/2015 10:52:08 Chronic obstructive pulmonary disease 63269961 J44.9 down to 3 cigarettes daily. plans to quit. Never got prescribed inhalers due to cost. Diabetes mellitus 716159 09 E11.9 Smoker 30156989 F17.210 Down to less than a pack aday. Patient will wean off on her own. Hyperlipidemia 96066577 E78.5 [id number] MD [place] Mcrae ([facility] [address] [place] [address] 12/21/2015 08:52:45 12/21/2015 09:52:03 Adult health examination 054546090 Z00.01 Patient no [facility] 731217773 Z91.19 Patient has been referred for colonoscop y, eye exam, bone density, mammogram but is refusing because she can't afford the co-pay and has not inquired at [facility] dept for IBCCP. She continues to smoke. Diabetes mellitus 860569 09 E11.9 [id number] MD [place] Andre ([facility]) [address] [place] [address] 07/15/2016 10:08:18 07/15/2016 10:49:32 Diabetes mellitus 21833590 E11.9 Counseled on DM and medication s-will continue current doses of medication , advised to continue glucose testing daily and to keep log. Essential hypertension 29381787 I10 Counseled on HTN and medication . Encouraged to monitor blood pressures with goal <140/90. Encouraged healthy diet and exercise. Counseled on smoking cessation. [id number] MD [place] Andre ([facility]) [address] [place] [address] 12/23/2016 08:51:12 12/23/2016 12:06:03 Diabetes mellitus 86791308 E11.9 Counseled on DM and medication s-will continue current doses of medication , advised to continue glucose testing daily and to keep log. Essential hypertension 66519466 I10 Counseled on HTN and medication . Encouraged to monitor blood pressures with goal <140/90. Encouraged healthy diet and exercise. Counseled on smoking cessation. Chronic ob structive pulmonary disease 10827327 J44.9 Counseled on COPD and medication s and the importance of compliance , smoking cessation advised Upper resp iratory infection 93288449 J06.9 Counseled on URI and medication s-Warm salt water gargles, rest, increase fluids. Tylenol/Ib uprofen for pain/fever , humidifier in the house. [id number] MD [place] H[facility] ([facility]) [address] [place] [address] 08/29/2017 11:28:50 08/31/2017 10:06:07 Vitamin D deficiency 25131651 E55.9 Hx of, check level. Addendum: def, start high dose. Then continue with OTC. Hyperlipidemia 90174989 E78.5 On Lovastatin 40mg daily. Check lipid level. Addendum: Advised compliance and lifestyle. Recheck in 6 months. Diabetes mellitus 276820 09 E11.9 Denies neuropathy . Will recheck all labs today. Continue Metformin 1000mg BID and Glipizide ER 10mg two tab daily. Addendum: A1C 9.5. Proteinuri a. Refer to Nephrology . Unsure compliance . Inc Metformin to 850mg TID and continue Glipizide ER 20mg daily. Ask about vision and neuropathy next visit. She will see eye doctor. RTC in 3mo. Smoker 41987828 F17.200 Self-cutti ng down. Hypertensive disorder 38 643595 I10 BP wnl on Lisinopril 20mg. Contineu the same. Chronic ob structive pulmonary disease 82244783 J44.9 Not dx through imagings or PFT. Controlled on Proair only. No insurance. Prefers to defer PFT. Proteinuria 04939080 R80 .9 Addendum: Proteinuri a on urine test. Pt declined Nephrology due to finance. Adult heal th examination 443866357 Z00.00 - Due to no insurance, pt prefers to defer all preventati ve screenings : mammogram, PAP smear, colonoscop y.- Declined vaccines. Body mass index 25-29 - overweight 110366381 Z68.28 [id number] MD [place] HAN ([facility]) [address] [place] [address] 11/27/2017 09:24:07 12/08/2017 11:01:32 Hypertensive disorder 26019826 I10 BP borderline . On Lisinopril 20mg. Pt declined BP kit. Continue the same. Proteinuria 29560846 R80 .9 08/2017: Proteinuri a on urine test. Pt declined Nephrology due to finance. Vitamin D deficiency 347 06175 E55.9 08/2017: def, start high dose. Then continue with OTC. 11/2017: Finished high dose. Not on supplement . start another high dose Hyperlipidemia 76542319 E78.5 08/2017: On Lovastatin 40mg daily. Check lipid level. Addendum: Advised compliance and lifestyle. Recheck in 6 months. 11/2017: T172 / TG 228 / LDL 88, better, need to take statin as prescribed . Diabetes mellitus 153098 09 E11.9 Pending eye. No neuropathy . 08/2017: Denies neuropathy . Will recheck all labs today. Continue Metformin 1000mg BID and Glipizide ER 10mg two tab daily. Addendum: A1C 9.5. Proteinuri a. Refer to Nephrology . Unsure compliance . Inc Metformin to 850mg TID and continue Glipizide ER 20mg daily. Ask about vision and neuropathy next visit. She will see eye doctor. RTC in 3mo. 11/2017: 8.7 < 9.5, better - we will add Januvia. Need to check kidney function next time. RTC 3mo. Biceps tendinitis 236104 007 M75.22 Left - full ROM, shoulders appears wnl, biceps tenderness , M/S wnl. Flexeril PRN. [id number] MD [place] H[facility] 14 IM [address] [facility] [address] [place] [address] 03/01/2018 09:47:37 03/02/2018 10:21:06 Chronic obstructive pulmonary disease 68236227 J44.9 Not dx through imagings or PFT. Controlled on Proair only. No insurance. Prefers to defer PFT. Diabetes mellitus 250503 09 E11.9 Pending eye. No neuropathy . 08/2017: Denies neuropathy . Will recheck all labs today. Continue Metformin 1000mg BID and Glipizide ER 10mg two tab daily. Addendum: A1C 9.5. Proteinuri a. Refer to Nephrology . Unsure compliance . Inc Metformin to 850mg TID and continue Glipizide ER 20mg daily. Ask about vision and neuropathy next visit. She will see eye doctor. RTC in 3mo. 11/2017: 8.7 < 9.5, better - we will add Januvia. Need to check kidney function next time. RTC 3mo. 02/2018: Home reading < 150's per patient. Tolerating Januvia. Continue Metformin, Glipizide and Januvia. Check A1C and BMP. Hypertensive disorder 38 361137 I10 11/2017: BP borderline . On Lisinopril 20mg. Pt declined BP kit. Continue the same. 02/2018: BP elevated today - pt had tobacco before clinic? We will increase Lisinopril to 30mg daily. RTC 3mo. Vitamin D deficiency 347 23988 E55.9 08/2017: def, start high dose. Then continue with OTC. 11/2017: Finished high dose. Not on supplement . start another high dose 02/2018: On OTC now. Recheck level. [id number] MD [place] H[facility] 14 IM [address] [facility] [address] [place] [address] 06/01/2018 09:51:22 06/01/2018 13:52:29 Hypertensive disorder 51219750 I10 11/2017: BP borderline . On Lisinopril 20mg. Pt declined BP kit. Continue the same. 02/2018: BP elevated today - pt had tobacco before clinic? We will increase Lisinopril to 30mg daily. RTC 3mo. 05/2018: BP wnl. Continue Lisinopril 30mg. Diabetes mellitus 168990 09 E11.9 Pending eye. No neuropathy . 08/2017: Denies neuropathy . Will recheck all labs today. Continue Metformin 1000mg BID and Glipizide ER 10mg two tab daily. Addendum: A1C 9.5. Proteinuri a. Refer to Nephrology . Unsure compliance . Inc Metformin to 850mg TID and continue Glipizide ER 20mg daily. Ask about vision and neuropathy next visit. She will see eye doctor. RTC in 3mo. 11/2017: 8.7 < 9.5, better - we will add Januvia. Need to check kidney function next time. RTC 3mo. 02/2018: Home reading < 150's per patient. Tolerating Januvia. Continue Metformin, Glipizide and Januvia. Check A1C and BMP. 05/2018: Home readings around 140-150's. Pt doesn't want to use insulins. Check A1C, continue the same. RTC 3mo Chronic ob structive pulmonary disease 64702097 J44.9 Not dx through imagings or PFT. Controlled on Proair only. No insurance. Prefers to defer PFT. Hyperlipidemia 39858378 E78.5 08/2017: On Lovastatin 40mg daily. Check lipid level. Addendum: Advised compliance and lifestyle. Recheck in 6 months. 11/2017: T172 / TG 228 / LDL 88, better, need to take statin as prescribed . Vitamin D deficiency 347 95816 E55.9 08/2017: def, start high dose. Then continue with OTC. 11/2017: Finished high dose. Not on supplement . start another high dose 02/2018: On OTC now. Recheck level. 05/2018: She on on OTC [id number] MD [place] HAN 14 IM [address] [facility] [address] [place] [address] 09/05/2018 09:47:12 09/13/2018 13:45:56 Chronic obstructive pulmonary disease 91862699 J44.9 Not dx through imagings or PFT. Stable on Proair - rarely uses. No insurance. Prefers to defer PFT. Diabetes mellitus 547308 09 E11.9 Pending eye. No neuropathy . 08/2017: Denies neuropathy . Will recheck all labs today. Continue Metformin 1000mg BID and Glipizide ER 10mg two tab daily. Addendum: A1C 9.5. Proteinuri a. Refer to Nephrology . Unsure compliance . Inc Metformin to 850mg TID and continue Glipizide ER 20mg daily. Ask about vision and neuropathy next visit. She will see eye doctor. RTC in 3mo. 11/2017: 8.7 < 9.5, better - we will add Januvia. Need to check kidney function next time. RTC 3mo. 02/2018: Home reading < 150's per patient. Tolerating Januvia. Continue Metformin, Glipizide and Januvia. Check A1C and BMP. 05/2018: Home readings around 140-150's. Pt doesn't want to use insulins. Check A1C, continue the same. RTC 3mo 08/2018: Home readings 130-140s. No insurance. RTC 6mo, blood tests then. Will see eye doctor. Hyperlipidemia 62293151 E78.5 08/2017: On Lovastatin 40mg daily. Check lipid level. Addendum: Advised compliance and lifestyle. Recheck in 6 months. 11/2017: T172 / TG 228 / LDL 88, better, need to take statin as prescribed . 08/2018: taking statin Hypertensive disorder 38 751593 I10 11/2017: BP borderline . On Lisinopril 20mg. Pt declined BP kit. Continue the same. 02/2018: BP elevated today - pt had tobacco before clinic? We will increase Lisinopril to 30mg daily. RTC 3mo. 05/2018: BP wnl. Continue Lisinopril 30mg. 08/2018: bp good, continue the same [id number] MD [place] HAN 14 IM [address] [facility] [address] [place] [address] 02/27/2019 09:50:13 03/13/2019 12:11:18 Chronic obstructive pulmonary disease 34401591 J44.9 Not dx through imagings or PFT. Stable on Proair - rarely uses. No insurance. Prefers to defer PFT. Addendum: Some day smoker. Rarely uses inhaler. Adult heal th examination 516519034 Z00.00 - Due to no insurance, pt prefers to defer all preventati ve screenings : mammogram, PAP smear, colonoscop y.- Declined vaccines.- Declined FOBT - Had pneumococc al 23 done Diabetes mellitus 915234 09 E11.9 Pending eye. No neuropathy . 08/2017: Denies neuropathy . Will recheck all labs today. Continue Metformin 1000mg BID and Glipizide ER 10mg two tab daily. Addendum: A1C 9.5. Proteinuri a. Refer to Nephrology . Unsure compliance . Inc Metformin to 850mg TID and continue Glipizide ER 20mg daily. Ask about vision and neuropathy next visit. She will see eye doctor. RTC in 3mo. 11/2017: 8.7 < 9.5, better - we will add Januvia. Need to check kidney function next time. RTC 3mo. 02/2018: Home reading < 150's per patient. Tolerating Januvia. Continue Metformin, Glipizide and Januvia. Check A1C and BMP. 05/2018: Home readings around 140-150's. Pt doesn't want to use insulins. Check A1C, continue the same. RTC 3mo 08/2018: Home readings 130-140s. No insurance. RTC 6mo, blood tests then. Will see eye doctor. 02/2019: Continue Metformin, Glipizide and Januvia. Labs today. Hyperlipidemia 51645526 E78.5 08/2017: On Lovastatin 40mg daily. Check lipid level. Addendum: Advised compliance and lifestyle. Recheck in 6 months. 11/2017: T172 / TG 228 / LDL 88, better, need to take statin as prescribed . 08/2018: taking statin. 02/2019: lab today. Vitamin D deficiency 347 89700 E55.9 08/2017: def, start high dose. Then continue with OTC. 11/2017: Finished high dose. Not on supplement . start another high dose 02/2018: On OTC now. Recheck level. 05/2018: She on on OTC 02/2019: recheck level. Hypertensive disorder 38 374821 I10 11/2017: BP borderline . On Lisinopril 20mg. Pt declined BP kit. Continue the same. 02/2018: BP elevated today - pt had tobacco before clinic? We will increase Lisinopril to 30mg daily. RTC 3mo. 05/2018: BP wnl. Continue Lisinopril 30mg. 08/2018: bp good, continue the same 05/2019: BP wnl. Continue Lisinopril 30mg. Osteoarthritis 463716538 M19.90 MCFP, laundry, Ache end of the day. Lidocaine cream. [id number] MD [place] HAN 14 IM [address] [facility] [address] [place] [address] 08/28/2019 09:54:38 08/29/2019 13:47:57 Chronic obstructive pulmonary disease 95488868 J44.9 Not dx through imagings or PFT. Stable on Proair - rarely uses. No insurance. Prefers to defer PFT. Addendum: Some day smoker. Rarely uses inhaler. Diabetes mellitus 432935 09 E11.9 Pending eye. No neuropathy . 08/2017: Denies neuropathy . Will recheck all labs today. Continue Metformin 1000mg BID and Glipizide ER 10mg two tab daily. Addendum: A1C 9.5. Proteinuri a. Refer to Nephrology . Unsure compliance . Inc Metformin to 850mg TID and continue Glipizide ER 20mg daily. Ask about vision and neuropathy next visit. She will see eye doctor. RTC in 3mo. 11/2017: 8.7 < 9.5, better - we will add Januvia. Need to check kidney function next time. RTC 3mo. 02/2018: Home reading < 150's per patient. Tolerating Januvia. Continue Metformin, Glipizide and Januvia. Check A1C and BMP. 05/2018: Home readings around 140-150's. Pt doesn't want to use insulins. Check A1C, continue the same. RTC 3mo 08/2018: Home readings 130-140s. No insurance. RTC 6mo, blood tests then. Will see eye doctor. 02/2019: Continue Metformin, Glipizide and Januvia. Labs today. 08/2019:CA D risk 10.6%. On statin, statin.A1C 8.9, worsened. Was traveling and not eating well. Continue Metformin, Januvia, Metformin. Work on lifestyle. Consider Invokana if sugar remain elevated. RTC 3mo. Biceps tendinitis 570016 007 M75.22 Left - full ROM, shoulders appears wnl, biceps tenderness , M/S wnl. Flexeril PRN. Hypertensive disorder 38 424151 I10 08/2019: BP wnl, continue lisinopril . Hyperlipidemia 40349068 E78.5 08/2019: CAD risk 10.6% with statin. Continue asa and statin. Tobacco user 251971054 Z 72.0 Not ready to quit. Adult [facility] th examination 638747099 Z00.00 - Due to no insurance, pt prefers to defer all preventati ve screenings : mammogram, PAP smear, colonoscop y.- Declined vaccines.- Declined FOBT (preferenc e). - Had pneumococc al 23 done [id number] MD [place] H[facility] 14 IM [address] [facility] [address] [place] [address] 11/27/2019 08:35:02 12/02/2019 11:11:08 Diabetes mellitus 84672876 E11.9 Pending eye. No neuropathy . 08/2017: Denies neuropathy . Will recheck all labs today. Continue Metformin 1000mg BID and Glipizide ER 10mg two tab daily. Addendum: A1C 9.5. Proteinuri a. Refer to Nephrology . Unsure compliance . Inc Metformin to 850mg TID and continue Glipizide ER 20mg daily. Ask about vision and neuropathy next visit. She will see eye doctor. RTC in 3mo. 11/2017: 8.7 < 9.5, better - we will add Januvia. Need to check kidney function next time. RTC 3mo. 02/2018: Home reading < 150's per patient. Tolerating Januvia. Continue Metformin, Glipizide and Januvia. Check A1C and BMP. 05/2018: Home readings around 140-150's. Pt doesn't want to use insulins. Check A1C, continue the same. RTC 3mo 08/2018: Home readings 130-140s. No insurance. RTC 6mo, blood tests then. Will see eye doctor. 02/2019: Continue Metformin, Glipizide and Januvia. Labs today. 08/2019:CA D risk 10.6%. On statin, statin.A1C 8.9, worsened. Was traveling and not eating well. Continue Metformin, Januvia, Metformin. Work on lifestyle. Consider Invokana if sugar remain elevated. RTC 3mo. 11/2019: Home glucose < 150s. Continue Januvia, Glipizide, Metformin. RTC 3mo for A1C. Hyperlipidemia 66087165 E78.5 Doing well on ASA and statin. Body mass index 25-29 - overweight 766017947 Z68.28 lifestyle [id number] Jorge Moreira MD [place] [address] [facility] [address] [place] [address] 06/25/2020 08:29:36 06/26/2020 21:37:14 Hypertensive disorder 01403080 I10 Hyperlipidemia 03725222 E78.5 Tobacco user [id number] Z 72.0 Vitamin D deficiency 347 52190 E55.9 Well contr olled type 2 diabetes mellitus 235473764 E11.9 Screening for malignant neoplasm of breast 581210154 Z12.39 Screening for malignant neoplasm of colon 977070423 Z12.11 [id number] Gabriella Childs MD [facility] [address] [place] [address] 01/26/2021 10:21:51 01/27/2021 18:18:00 Hypertensive disorder 06995195 I10 - b/p in office today 146/76 - Continue medication as prescribed and diet/exerc ise as previously discussed. - Take occasional BP s , call if consistent ly >140/90. - Discussed reasons for sooner f/u than 1 months. - Patient verbalizes understand ing. Tobacco user 415249955 Z 72.0 - Patient is a current cigarette smoker, states she smokes 2pk per day and currently has no desire to quit. - Patient advised in the derogatory effects of smoking - Counseling for smoking cessation completed Diabetes mellitus 699200 09 E11.9 - Educated on goal of blood sugars (A1C of 7% and fasting of 80-130) and informatio n below. Postprandi al BG of less than 180. - Encouraged weight loss and diet changes. - Monitor BP with goal of <130/80. - Stop smoking. Continue statin and next level due 6 months - Eye exam yearly and dentist regularly. - Next A1C due 6 months - RTC or call if blood sugars not controlled . - Check feet daily and notify PCP immediatel y of abnormalit y. - Take ASA daily. - F/U in 6 months Hyperlipidemia 48517991 E78.5 [id number] Gabriella Childs MD [facility] [address] [facility] [address] [place] [address] 07/28/2021 10:51:33 08/07/2021 20:30:21 Chronic obstructive pulmonary disease 40260389 J44.9 patient states she does not use states inhalers are way to expensive Well contr olled type 2 diabetes mellitus 368919053 E11.9 Educated on goal of blood sugars (A1C of 7% and fasting of 80-130) and informatio n below. Postprandi al BG of less than 180. Encouraged weight loss and diet changes. Monitor BP with goal of <130/80. Stop smoking. Continue statin and next level due 6 months Eye exam yearly and dentist regularly. Next A1C due 3 months RTC or call if blood sugars not controlled . Check feet daily and notify PCP immediatel y of abnormalit y. Take ASA daily. F/U in 3 months Hypertensive disorder 38 045610 I10 - b/p in office today 140/82 - Continue medication as prescribed and diet/exerc ise as previously discussed. - Take occasional BP s , call if consistent ly >140/90. - Discussed reasons for sooner f/u than 6 months - Patient verbalizes understand ing. Tobacco user 657389664 Z 72.0 - Patient is a current cigarette smoker, states she smokes 2 pk per day and currently has no desire to quit. - Patient advised in the derogatory effects of smoking - Counseling for smoking cessation completed [id number] Gabriella Childs MD [facility] [address] [place] [address] 01/04/2022 09:34:35 01/06/2022 15:08:31 Hypertensive disorder 22927771 I10 - b/p in office today 138/82 - Continue medication as prescribed and diet/exerc ise as previously discussed. - Take occasional BP s , call if consistent ly >140/90. - Discussed reasons for sooner f/u than 6 months - Patient verbalizes understand ing. Well contr olled type 2 diabetes mellitus 427953895 E11.9 Educated on goal of blood sugars (A1C of 7% and fasting of 80-130) and informatio n below. Postprandi al BG of less than 180.Encour aged weight loss and diet changes.Mo nitor BP with goal of <130/80.St op smoking.Co ntinue statin and next level due 6 monthsEye exam yearly and dentist regularly. Next A1C due 1 monthRTC or call if blood sugars not controlled .Check feet daily and notify PCP immediatel y of abnormalit y.Take ASA daily.F/U in 6 months Tobacco user 381598474 Z 72.0 - Patient is a current cigarette smoker, states she smokes 2 pk per day and currently has no desire to quit. - Patient advised in the derogatory effects of smoking - Counseling for smoking cessation completed Body mass index 25-29 - overweight 337529236 Z68.26 - Always present to ER or Urgent Care with any progressio n of/alarmin g symptoms, significan t changes in symptoms or any concerning or urgent matters Renewal of prescription 588439211 Z76.0 [id number] Gabriella Childs MD [facility] [address] [place] [address] 02/23/2022 10:23:43 02/25/2022 13:12:31 Hypertensive disorder 65219894 I10 - b/p in office today 138/82 - Continue medication as prescribed and diet/exerc ise as previously discussed. - Take occasional BP s , call if consistent ly >140/90. - Discussed reasons for sooner f/u than 6 months - Patient verbalizes understand ing. Tobacco user 891446136 Z 72.0 - Patient is a current cigarette smoker, states she smokes 2 pk per day and currently has no desire to quit. - Patient advised in the derogatory effects of smoking - Counseling for smoking cessation completed Well contr olled type 2 diabetes mellitus 739595804 E11.9 Educated on goal of blood sugars (A1C of 7% and fasting of 80-130) and informatio n below. Postprandi al BG of less than 180.Encour aged weight loss and diet changes.Mo nitor BP with goal of <130/80.St op smoking.Co ntinue statin and next level due 6 monthsEye exam yearly and dentist regularly. Next A1C due 1 monthRTC or call if blood sugars not controlled .Check feet daily and notify PCP immediatel y of abnormalit y.Take ASA daily.F/U in 6 months Chronic ob structive pulmonary disease 11044672 J44.9 patient states she does not use states inhalers are way to expensive [id number] Jorge Moreira MD [facility] [address] [place] [address] 08/26/2022 10:31:00 08/30/2022 08:19:26 Tobacco user 437983641 Z72.0 - Patient is a current cigarette smoker, states she smokes 2- 2.5 pk per day and currently has no desire to quit. - Patient advised in the derogatory effects of smoking - Counseling for smoking cessation completed Diabetes mellitus 859532 09 E11.9 - Educated on goal of blood sugars (A1C of 7% and fasting of 80-130) and informatio n below. Postprandi al BG of less than 180. - Encouraged weight loss and diet changes. - Monitor BP with goal of <130/80. - Stop smoking. Continue statin and next level due 6 months - Eye exam yearly and dentist regularly. - Next A1C due 6 months - RTC or call if blood sugars not controlled . - Check feet daily and notify PCP immediatel y of abnormalit y. - Take ASA daily. - F/U in 6 months Hypertensive disorder 38 854673 I10 - b/p in office today 130/72 - Continue medication as prescribed and diet/exerc ise as previously discussed. - Take occasional BP s , call if consistent ly >140/90. - Discussed reasons for sooner f/u than 6 months - Patient verbalizes understand ing. Overweight 339726737 E66 .3 advised low fat, low cholestero l, low carb diet, regular exercise and weight reduction. Well contr olled type 2 diabetes mellitus 342292374 E11.9 Educated on goal of blood sugars (A1C of 7% and fasting of 80-130) and informatio n below. Postprandi al BG of less than 180.Encour aged weight loss and diet changes.Mo nitor BP with goal of <130/80.St op smoking.Co ntinue statin and next level due 6 monthsEye exam yearly and dentist regularly. Next A1C due 1 monthRTC or call if blood sugars not controlled .Check feet daily and notify PCP immediatel y of abnormalit y.Take ASA daily.F/U in 6 months [id number] Jorge Moreira MD [facility] [address] [place] [address] 10/20/2022 10:17:39 10/25/2022 15:26:59 Hypertensive disorder 72297333 I10 - b/p in office today 173/80. repeat b/p 168/78. Patient states she just took b/p medication prior to coming into office. - Continue medication as prescribed and diet/exerc ise as previously discussed. - Take occasional BP s , call if consistent ly >140/90. - Discussed reasons for sooner f/u than 6 months - Patient verbalizes understand ing. Overweight 872647858 E66 .3 advised low fat, low cholestero l, low carb diet, regular exercise and weight reduction. Tobacco user 203868081 Z 72.0 - Patient is a current cigarette smoker, states she smokes 2- 2.5 pk per day and currently has no desire to quit. - Patient advised in the derogatory effects of smoking - Counseling for smoking cessation completed [id number] Jorge Moreira MD [facility] [address] [place] [address] 12/22/2022 10:16:31 12/23/2022 14:10:14 Uncontrolled type 2 diabetes mellitus 108864817 E11.65 - Educated on goal of blood sugars (A1C of 7% and fasting of 80-130) and informatio n below. Postprandi al BG of less than 180.- Encouraged weight loss and diet changes.- Monitor BP with goal of <130/80.- Stop smoking.- Continue statin and next level due 6 months- Eye exam yearly and dentist regularly. - Next A1C due 6 months- RTC or call if blood sugars not controlled .- Check feet daily and notify PCP immediatel y of abnormalit y.- Take ASA daily.- F/U in 6 months Tobacco user 835893869 Z 72.0 - Patient is a current cigarette smoker, states she smokes 2- 2.5 pk per day and currently has no desire to quit. - Patient advised in the derogatory effects of smoking - Counseling for smoking cessation completed Hypertensive disorder 38 941415 I10 - b/p in office today 195/84, repat b/p 164/82 - Continue Lisinopril 40 mg. Start Amlodipine 5 mg daily - Take occasional BP s , call if consistent ly >140/90. - Discussed reasons for sooner f/u than 1 month - Patient verbalizes understand ing. Overweight 232996253 E66 .3 advised low fat, low cholestero l, low carb diet, regular exercise and weight reduction. Noncomplia nce with medication regimen 432921735 Z91.A4 Patient not taking medication s as prescribed [id number] Jorge Moreira MD [facility] [address] [place] [address] 01/19/2023 10:17:54 01/31/2023 10:35:10 Hypertensive disorder 52032009 I10 - b/p in office today 153/90 - Continue Lisinopril 40 mg. Start Amlodipine 5 mg daily - Take occasional BP s , call if consistent ly >140/90. - Discussed reasons for sooner f/u than 1 month - Patient verbalizes understand ing. Tobacco user 792596896 Z 72.0 - Patient is a current cigarette smoker, states she smokes 1-1.5 pk per day and currently has no desire to quit. - Patient advised in the derogatory effects of smoking - Counseling for smoking cessation completed Overweight 019645745 E66 .3 advised low fat, low cholestero l, low carb diet, regular exercise and weight reduction. [id number] Jorge Moreira MD [facility] [address] [place] [address] 03/21/2023 09:47:59 04/03/2023 13:10:21 Hypertensive disorder 87624109 I10 - b/p in office today 153/90 - Continue Lisinopril 40 mg. Start Amlodipine 5 mg daily - Take occasional BP s , call if consistent ly >140/90. - Discussed reasons for sooner f/u than 1 month - Patient verbalizes understand ing. Uncontroll ed type 2 diabetes mellitus 437303403 E11.65 - Educated on goal of blood sugars (A1C of 7% and fasting of 80-130) and informatio n below. Postprandi al BG of less than 180.- Encouraged weight loss and diet changes.- Monitor BP with goal of <130/80.- Stop smoking.- Continue statin and next level due 6 months- Eye exam yearly and dentist regularly. - Next A1C due 6 months- RTC or call if blood sugars not controlled .- Check feet daily and notify PCP immediatel y of abnormalit y.- Take ASA daily.- F/U in 6 months Overweight 832133131 E66 .3 advised low fat, low cholestero l, low carb diet, regular exercise and weight reduction. [id number] Jorge Moreira MD [facility] [address] [place] [address] 05/02/2023 10:24:55 05/03/2023 09:57:42 Hypertensive disorder 88867862 I10 - b/p in office today 159/83. - Take occasional BP s , call if consistent ly >140/90. - Discussed reasons for sooner f/u than 3 moth's - Patient verbalizes understand ing. Tobacco user 063590268 Z 72.0 - Patient is a current cigarette smoker, states she smokes 1-1.5 pk per day and currently has no desire to quit. - Patient advised in the derogatory effects of smoking - Counseling for smoking cessation completed [id number] Jorge Moreira MD [facility] [address] [place] [address] 08/24/2023 10:10:04 08/25/2023 15:49:45 Diabetes mellitus 33179222 E11.9 - Educated on goal of blood sugars (A1C of 7% and fasting of 80-130) and informatio n below. Postprandi al BG of less than 180. - Encouraged weight loss and diet changes. - Monitor BP with goal of <130/80. - Stop smoking. Continue statin and next level due 6 months - Eye exam yearly and dentist regularly. - Next A1C due 6 months - RTC or call if blood sugars not controlled . - Check feet daily and notify PCP immediatel y of abnormalit y. - Take ASA daily. - F/U in 6 months Tobacco user 723902458 Z 72.0 - Patient is a current cigarette smoker, states she smokes 1-1.5 pk per day and currently has no desire to quit. - Patient advised in the derogatory effects of smoking - Counseling for smoking cessation completed Hypertensive disorder 38 568217 I10 - b/p in office today 159/83. Patient states she had not taken her b/p medication this morning - Take occasional BP s , call if consistent ly >140/90. - Discussed reasons for sooner f/u than 3 moth's - Patient verbalizes understand ing. Adult heal th examination 601229095 Z00.00 Health Risk Assessment collected and reviewed Influenza vaccination declined 037250139 Z28.21 - Offered and discussed benefits of flu vaccine. Patient verbalized undertandi ng , however respectful ly declined. Pneumococc al vaccination declined 630567070 Z28.21 - Offered and discussed benefits of pneumococc al vaccine. Patient verbalized understand ing, however respectful ly declined. Colonoscopy declined 188 4326074 05878 Z53.20 Patient declined Hyperlipidemia 63217163 E78.5 [id number] Jorge Moreira MD [facility] [address] [place] [address] 03/05/2024 14:32:37 03/11/2024 09:46:08 Tobacco user 205976281 Z72.0 - Patient is a current cigarette smoker, states she smokes 1-1.5 pk per day and currently has no desire to quit. - Patient advised in the derogatory effects of smoking - Counseling for smoking cessation completed Hypertensive disorder 38 451662 I10 - b/p in office today 147/84 - Take occasional BP s , call if consistent ly >140/90. - Discussed reasons for sooner f/u than 3 months - Patient verbalizes understand ing. Uncontroll ed type 2 diabetes mellitus 749314997 E11.65 - Educated on goal of blood sugars (A1C of 7% and fasting of 80-130) and informatio n below. Postprandi al BG of less than 180.- Encouraged weight loss and diet changes.- Monitor BP with goal of <130/80.- Stop smoking.- Continue statin and next level due 6 months- Eye exam yearly and dentist regularly. - Next A1C due 6 months- RTC or call if blood sugars not controlled .- Check feet daily and notify PCP immediatel y of abnormalit y.- Take ASA daily.- F/U in 6 months Spasm 75957026 R25.2 - Drink plenty of fluids to prevent dehydratio n.- Stretch your muscles every day- Place heating pad on the muscles- RTC if you do not get better as expected. HIV screen ing declined [id number] 70468 Z53.20 Patient declined Colonoscopy declined 643 0885948 60038 Z53.20 Patient declined Screening mammography 24 264794 Z12.31 - Patient educated on the importance of annual breast cancer screenings with mammograph y.- Mammogram order sent and printed copy provided to pt. [id number] Jorge Moreira MD [facility] [address] [place] [address] 04/24/2024 15:30:19 04/30/2024 16:05:46 Hypertensive disorder 22585806 I10 - b/p in office today 119/73 - Take occasional BP s , call if consistent ly >140/90. - Discussed reasons for sooner f/u than 3 months - Patient verbalizes understand ing. [id number] Jroge Moreira MD [facility] [address] [place] [address] 08/21/2024 15:29:02 09/17/2024 09:37:04 Tobacco user 652929865 Z72.0 - Patient is a current cigarette smoker, states she smokes 1-1.5 pk per day and currently has no desire to quit. - Patient advised in the derogatory effects of smoking - Counseling for smoking cessation completed Hypertensive disorder 38 227078 I10 - b/p in office today 150/74 - Take occasional BP s , call if consistent ly >140/90. - Discussed reasons for sooner f/u than 3 months - Patient verbalizes understand ing. Uncontroll ed type 2 diabetes mellitus 408830405 E11.65 Dr. Prieto following and managing [id number] Jorge Moreria MD [facility] [address] [place] [address] 09/18/2024 15:22:04 10/07/2024 14:25:18 Tobacco user 519750011 Z72.0 - Patient is a current cigarette smoker, states she smokes 1-1.5 pk per day and currently has no desire to quit. - Patient advised in the derogatory effects of smoking - Counseling for smoking cessation completed Hypertensive disorder 38 454226 I10 - b/p in office today 122/79 - Take occasional BP s , call if consistent ly >140/90. - Discussed reasons for sooner f/u than 3 months - Patient verbalizes understand ing. Uncontroll ed type 2 diabetes mellitus 528245638 E11.65 Dr. Prieto following and managing care Overweight 028934576 E66 .3 advised low fat, low cholestero l, low carb diet, regular exercise and weight reduction. [id number] Jorge Moreira MD [facility] [address] [place] [address] 01/15/2025 15:20:11 01/17/2025 12:19:13 Hypertensive disorder 18336044 I10 - b/p in office today 147/77 - Continue medication as prescribed and diet/exerc ise as previously discussed. - Take occasional BP s , call if consistent ly >140/90. - Discussed reasons for sooner f/u than 3 weeks - Patient verbalizes understand ing. Uncontroll ed type 2 diabetes mellitus 695709941 E11.65 Dr. Conner cerda and managing [facility] led with Conner on 01/27 [id number] Jorge Moreira MD [facility] [address] [place] [address] 03/17/2025 15:26:11 03/18/2025 10:39:08 Hypertensive disorder 31624387 I10 - b/p in office today 116/74 - Continue medication as prescribed and diet/exerc ise as previously discussed. - Take occasional BP s , call if consistent ly >140/90. - Discussed reasons for sooner f/u than 3 weeks - Patient verbalizes understand ing. Uncontroll ed type 2 diabetes mellitus 811904289 E11.65 Dr. Conner cerda and managing [facility] led with Conner on 01/27 [facility] examination 000914097 Z00.00 Health Risk Assessment collected and reviewed Hyperlipidemia 54463027 E78.5 Vitamin D deficiency 347 56921 E55.9 Weakness o f left upper limb 4512157173 63775 R29.898 359083 Intermitte nt left upper arm weakness and numbness (elbow to shoulder)R /O neurologic etiology should be ruled out first. Central cause (TIA) remains in differenti al due to patient's age and intermitte nt presentati on. Will order carotid Doppler ultrasound to evaluate for carotid stenosis or plaque as possible TIA source.Edu cated patient on stroke warning signs and instruct to seek emergency care for any sudden or worsening symptoms. Transient ischemic attack suspected 718129524 R09.89 [id number] Health Concerns Section Related Observation LastModified by Organization Detai ls LastModified Time None Recorded Concern Status LastModified by Organization Details LastModified Time None Recorded Advance Directives Directive None Recorded Payers Insurance Date Sequence Insurance Name Policy Number Policy Rouse Covered Member ID Rouse Member ID Guarantor Name 08/28/2019 SLIDING FEE SCHEDULE - DISCOUNT Nikki Ivy 01/27/2021 SLIDING FEE SCHEDULE - DISCOUNT Nikki Ivy 03/19/2025 [place] [facility] Nikki Bruce Ivy [id number] Nikki Ivy 07/18/2022 SLIDING FEE SCHEDULE - DISCOUNT Nikki Ivy 08/21/2024 SLIDING FEE SCHEDULE - DISCOUNT Nikki Ivy 03/19/2025 [place] [facility] Nikkigold Ivy [id number] Nikki Ivy 03/19/2025 [place] [facility] Nikki Bruce Ivy [id number] Nikki Gricel Ivy 11/17/2014 SLIDING FEE SCHEDULE - DISCOUNT Nikki Ivy 01/13/2021 SLIDING FEE SCHEDULE - DISCOUNT Nikki Ivy 03/19/2025 1 [facility] OPEN ACCESS (POS) [id number] Nikki Ivy [id number] Nikki Ivy 03/19/2025 1 [facility] (MEDICARE REPLACEMENT HMO) [id number] Nikki Ivy [id number] Nikki Ivy 03/19/2025 [place] [facility] Nikki Ivy [id number] Nikki Ivy 03/19/2025 [place] [facility] Nikki Ivy [id number] Nikki Ivy 03/19/2025 [place] [facility] Nikki Ivy [id number] Nikki Ivy 03/19/2025 [place] [facility] Nikki Ivy [id number] Nikki Ivy 03/19/2025 [place] [facility] Nikki Ivy [id number] Nikki Ivy 03/01/2018 SLIDING FEE SCHEDULE - DISCOUNT Nikki Ivy 10/20/2022 1 *SELF PAY* Ga nhung Ivy 03/19/2025 1 [place] Nikki Ivy [id number] Nikki Ivy Notes Date Note Type Note Provider Name and Address Organization Details Recorded Time 04/24/2024 text/html Hypertension F/UReported by PatientHPIFor associated symptoms, patient reportsno dizziness,no lightheadedness,no chest pain,no shortness of breath,no palpitations, andno edema. For medications, patient reportstaking medications as directedandno side effects from medication.ROS as noted in the HPI Ms Ivy presented in office today for follow appointment. ZAK ABEBE NP Attn: Accounting,[address] [facility], [place], [address], [facility] 04/29/2024 11:00:57 08/21/2024 text/html Hypertension F/UReported by PatientHPIFor associated symptoms, patient reportsno dizziness,no lightheadedness,no chest pain,no shortness of breath,no palpitations, andno edema. For medications, patient reportstaking medications as directed. Diabetes F/UReported by PatientHPIFor labs, patient reportslast a1c result: 8.4 (07/30/24). For context, patient reportsnot missing doses of medicationsandno side effects from medications.ROS as noted in the HPI Ms. Ivy is here for a follow-up, reporting no new symptoms or concerns. No changes in health since the last visit. ZAK ABEBE NP Attn: Accounting,[address] [facility], [place], [address], [facility] 09/16/2024 15:24:00 09/18/2024 text/html Diabetes F/URepo rted by PatientHPIFor labs, patient reportslast a1c result: 8.4 (07/30/24). For context, patient reportsnot missing doses of medications. Hypertension F/UReported by PatientHPIFor associated symptoms, patient reportsno dizziness,no lightheadedness,no chest pain,no shortness of breath,no palpitations, andno edema. For medications, patient reportstaking medications as directedandno side effects from medication.ROS as noted in the HPI Ms. Ivy presents in office today for follow up appointment. ZAK ABEBE NP Attn: Accounting,[address] [facility], [place], [address], [facility] 10/05/2024 18:17:51 01/15/2025 text/html Diabetes F/URepo rted by PatientHPIFor labs, patient reportslast a1c result: 8.3 (10/29/24). For context, patient reportsnot missing doses of medications. Hypertension F/UReported by PatientHPIFor associated symptoms, patient reportsno dizziness,no lightheadedness,no chest pain,no shortness of breath,no palpitations, andno edema.ROS as noted in the HPI Ms. Ivy is here for a follow-up, reporting no new symptoms or concerns. No changes in health since the last visit. ZAK ABEBE NP Attn: Accounting,[address] [facility], [place], [address], [place] [facility] 01/17/2025 09:19:24 03/17/2025 text/html Hypertension F/UReported by PatientHPIFor associated symptoms, patient reportsno dizziness,no lightheadedness,no chest pain,no shortness of breath,no palpitations, andno edema. For medications, patient reportstaking medications as directed. Diabetes F/UReported by PatientHPIFor labs, patient reportslast a1c result: 7.3 (01/2025). For context, patient reportsnot missing doses of medicationsandno side effects from medications. MAW 2Reported by PatientSocial/Behavior al HistoryFor diet and nutrition, patient reportshealthy diet. For fracture risk, patient reportsno history of fracturesandno sudden unexplained fractures.Mental Status:For concentration and memory, patient reportsno decreased concentrating ability,no memory lapses or loss, anddoes not forget words. For speech/motor difficulties, patient reportsno speech difficulties,no difficulty expressing formulated concepts,no difficulty with fine manipulative tasks,no difficulty writing/copying,no slowed reaction time, anddoes not knock things over when trying to pick them up.Functional AbilityFor vision, patient reportsworsening. For hearing, patient reportsno loss of hearing. For activities of daily living, patient reportsable to bathe with limited or no assistance,able to contol urination and bowels,able to dress with limited or no assistance,able to feed self with limited or no assistance,able to get out of chair or bed with limited or no assistance,able to groom with limited or no assistance, andable to toilet with limited or no assistance. For instrumental activities of daily living, patient reportsable to do house work with limited or no assistance,able to grocery shop with limited or no assistance,able to manage medications with limited or no assistance,able to manage money with limited or no assistance,able to prepare meals with limited or no assistance, andable to use the phone with limited or no assistance. For falls risk assessment, patient reportsno frequent falls while walking,no fall in the past year,no fall since last visit, andno dizziness/vertigo. For home safety, patient reportsno unsafe raeann hazzards,no unsafe stairs,working smoke/co detectors,no fire arms,has hand bars in the bathroom/shower, andgood lighting in the home.ROS as noted in the HPI Ms. Ivy presents for follow-up and Medicare Annual Wellness Visit. She reports experiencing intermittent weakness and numbness in the left arm over the past several weeks. She denies associated pain, trauma, or recent injury. The symptoms are not constant but occur sporadically throughout the day. Patient suspects the symptoms may be related to a prior rotator cuff injury. No recent changes in activity or known aggravating or relieving factors. No associated neck pain, chest pain, or systemic symptoms reported. ZAK ABEBE NP Attn: Accounting,[address] [facility], [place], [address], [facility] [place] 03/17/2025 17:47:22 OBGyn Episode No OBEpisode recorded.
--- OUTSIDE RECORDS SUMMARY | 2025-07-04 14:45 | XMS_ITS | Clinical Summary ---
Author Organization [facility] Address [address], [address] [address] Phone Care Team Providers Care Commercial Ocean Clammer Name Role Phone Tana, Radha Ardon APRN, SU Primary Care Provider Cyndi Prieto MD Unavailable Medications amLODIPine (NORVASC) 10 MG Tablet Take 1 Tablet by mouth daily. Active aspirin EC 81 MG Tablet Delayed Response Take 1 Tablet by mouth. 8 Active hydroCHLOROthia zide 12.5 MG Tablet Take 1 Tablet by mouth daily. 4 Active lisinopril (PRINIVIL, ZESTRIL) 40 MG Tablet Take 1 Tablet by mouth daily. 8 Active lovastatin (MEVACOR) 40 MG Tablet Take 1 Tablet by mouth daily. 8 Active Cholecalciferol (VITAMIN D-3 PO) Take by mouth. Activ e Ozempic, 0.25 or 0.5 MG/DOSE, 2 MG/3ML Solution Pen-injector Inject 0.25 mg subcutaneous weekly x 4 weeks then increase to 0.5 mg subcutaneous weekly x 4 weeks. 6 mL 5 Active Additional Information Patient not taking.Reported on 05/02/2025 Insulin Pen Needle (Novofine Pen Needle) 32G X 6 MM Misc 1 Pen Needle by Does not apply route See Admin Instructions. Use to inject ozempic and tresiba. 200 Each 5 Active Ozempic, 1 MG/DOSE, 4 MG/3ML Solution Pen-injector 1 mg by Subcutaneous route once a week. 6 mL 5 Active insulin degludec (Tresiba FlexTouch) 100 UNIT/ML Solution Pen-injector 20 Units by Subcutaneous route nightly. 24 mL 5 Active metFORMIN (GLUCOPHAGE) 850 MG Tablet Take 1 Tablet by mouth 2 times daily (with meals). 180 Tablet 1 5 Active metFORMIN (GLUCOPHAGE) 850 MG Tablet Take 1 Tablet by mouth 2 times daily (with meals). 180 Tablet 1 5 Active Active Problems Problem Noted Date Diagnosed Date Type 2 diabetes mellitus wit h diabetic polyneuropathy, without long-term current use of insulin 05/05/2024 Encounters Date Type Department Care Team Description 05/12/2025 MyChart RX Renewal [facility] [address] [place] [address] Cyndi Prieto MD Medication Renewal Reviewed 05/09/2025 Refill [facility] [address] [place] [address] Cyndi Prieto MD Medication Refill 05/02/2025 2:15 PM CDT Office Visit [facility] [address] [place] [address] Cyndi Prieto MD Type 2 diabetes mellitus with diabetic polyneuropathy, without long-term current use of insulin (HCC) (Primary Dx); Overweight; Financial difficulty; Tobacco use Discharge Disposition: Discharged to home or Selfcare 05/02/2025 Travel from Last 3 Months Immunizations Immunization Administration Dates Next Due Pneumococcal Vaccine Adult - 23 Valent 5 Social History Tobacco Use Types Packs/Day Years Used Date Smoking Tobacco: Never Passive Smoke Exposure: Never Smokeless Tobacco: Never Tobacco Cessation:Counseling Given: Not Answered Alcohol Use Standard Drinks/Week Comments Never 0 (1 standard drink = 0.6 oz pur e alcohol) Sexually Active Control Partners Comments Not Currently Male Condom Male Comments Unknown Sex and Gender Information Value Date Recorded Sex Assigned at Not on file Legal Sex Female 12:38 AM CDT Gender Identity Not on file Sexual Orientation Not on file Last Filed Vital Signs Vital Sign Reading Time Taken Comments Blood Pressure 126/82 05/02/2025 2:01 PM CDT Pulse 82 05/02/2025 2:01 PM CDT Temperature 36.4 C (97.5 F) 05/02/2025 2:01 PM CDT Respiratory Rate 22 05/02/2025 2:01 PM CDT Oxygen Saturation 96% 05/02/2025 2:01 PM CDT Inhaled Oxygen Concentration - - Weight 66.6 kg (146 lb 12.8 oz) 05/02/2025 2:01 PM CDT Height 165.1 cm (5' 5) 05/02/2025 2:01 PM CDT Body Mass Index 24.43 05/02/2025 2:01 PM CDT Plan of Treatment Upcoming Encounters Date Type Department Care Team (Late st Contact Info) Description 08/01/2025 2:00 PM HARDBOARD GRINDER Office Visit [facility] [place] [address] [place] [address] Cyndi Prieto MD [address] [address] Health Maintenance Due Date Last Done Comments DEXA Bone Density 1955 Hepatitis C Virus (HCV) Screening 1957 Mammogram 1957 TdaP Immunization 1957 Varicella Immunization (1 of 2 - 13+ 2-dose series) 1970 Cologuard 2002 Colonoscopy 2002 Colorectal Cancer Screening 2002 Immunochemical Fecal Occult Blood 2002 Respiratory Syncytial Virus (RSV) Immunization (Adult) (1 - Risk 50-74 years 1-dose series) 10/18/2007 Zoster Immunization (1 of 2) 10/18/2007 Pneumococcal Immunization (50+ years) (2 of 2 - PCV) 04/10/2016 04/10/2015 Medicare Initial AWV G0438 10/13/2023 Influenza Immunization (#1) 2025 SARS-COV-2 Immunization (2 - season) 2025 12/28/2020 Diabetes: Foot Exam 04/30/2025 04/30/2024 Diabetes: Eye Exam 07/30/2025 07/30/2024, 04/30/2024 Diabetes: Hemoglobin A1c 10/30/2025 025, 01/30/2025, 10/29/2024, Additional history exists Diabetes: Nephropathy Screening 03/17/2026 03/17/2025 Pneumococcal Immunization Combined Discontinued 04/10/2015 Hepatitis B Immunization Aged Out No longer eligible based on patient's age to complete this topic Human Papillomavirus (HPV) Immunization Aged Out No longer eligible based on patient's age to complete this topic Meningococcal Immunization (ACWY) Aged Out No longer eligible based on patient's age to complete this topic Rotavirus Immunization Aged Out No lo nger eligible based on patient's age to complete this topic Procedures Procedure Name Priority Date/Time Associated Diagnosis Comments POCT GLYCOSYLATED HEMOGLOBIN Routine 05/02/2025 2:08 PM CDT Type 2 diabetes mellitus with diabetic polyneuropathy, without long-term current use of insulin (HCC) DIABETIC BILATERAL RETINAL IMAGING WITH COMPUTERIZED INTERPRETATION Routine 07/30/2024 2:36 PM HARDBOARD GRINDER Type 2 diabetes mellitus with hyperglycemia, unspecified whether retirement insulin use (HCC) from Last 3 Months or Most Recently Relevant to Health Maintenance Results * (ABNORMAL) POCT GLYCOSYLATED HEMOGLOBIN (05/02/2025 2:08 PM CDT) HGB-A1C 7.0(A) 4 - 6 % Blood 05/02/2025 2:08 PM CDT Cyndi Prieto MD POINT OF CARE TESTING (MANUAL) F inal Result * (ABNORMAL) DIABETIC BILATERAL RETINAL IMAGING WITH COMPUTERIZED INTERPRETATION (07/30/2024 2:36 PM HARDBOARD GRINDER) DIABETIC BILATERAL DIGITAL RETINAL IMAGING Exam quality insufficien t(A) DIGITAL DIAGNOSTICS Comment: Next Steps: Refer to education paraprofessional IDx Submission ID: [id number] Results were produced by a system that provides an artificial intelligence (AI) interpretation A positive result indicates a high risk of diabetic retinopathy with a severity of ETDRS level 35 or higher and/or macular edema. IDx-DR diabetic retinopathy exam does not replace a comprehensive eye exam. Other 07/30/2024 2:36 PM HARDBOARD GRINDER Cyndi Prieto MD OUTPT PROCEDURE ORDERABLES Final Result EXTERNAL EKG DIGITAL DIAGNOSTICS from Last 3 Months or Most Recently Relevant to Health Maintenance Insurance MEDICARE Care Teams Commercial Ocean Clammer Relationship Specialty Start Date End Date Radha Fajardo APRN, CNP [address] [place] [address] PCP - General Advanced Practice Nurse 03/12/24 Cyndi Prieto MD [address] [phone] Consulting Physician Endocrinology 04/23/24
--- OUTSIDE RECORDS SUMMARY | 2025-07-04 14:45 | XMS_ITS | Encounter Summary ---
Author Organization [facility] Address [address] [place] [phone] Phone Care Team Providers Care Bag Turner Name Role Phone Unavailable Primary Care Provider Unavailabl e Reason for Visit * Reason Comments Med Refill Encounter Details Date Type Department Care Team (Late st Contact Info) Description 04/01/2019 Refill [facility] [address] [facility] 1 [place] [address] Mark Dailey MD [address] [address] Social History Tobacco Use Types Packs/Day Years Used Date Smoking Tobacco: Every Day Alcohol Use Standard Drinks/Week Comments Yes 0 (1 standard drink = 0.6 oz pure alcohol) Alcoholic Drinks/day: occasionally Comments Unknown Sex and Gender Information Value Date Recorded Sex Assigned at Not on file Legal Sex Female 9:33 AM MST Gender Identity Not on file Sexual Orientation Not on file documented as of this encounter Plan of Treatment Not on file documented as of this encounter Visit Diagnoses Not on filedocumented in this encounter
--- OUTSIDE RECORDS SUMMARY | 2025-07-04 14:45 | XMS_ITS | Encounter Summary ---
Author Organization [facility] Address [address] [place] [phone] Phone Care Team Providers Care Distributor Operator Name Role Phone Unavailable Primary Care Provider Unavailabl e Reason for Visit * Reason Comments Med Refill Encounter Details Date Type Department Care Team (Late st Contact Info) Description 04/02/2019 Refill [facility] [address] [facility] 1 [place] [address] Mark Dailey MD [address] [address] Social History Tobacco Use Types [...]
[2025-07-04 14:46] VITALS: BP 150/76; PULSE 100; RESP 18; TEMP 36.6; O2SAT 100
--- NOTE | 2025-07-04 15:00 | ED.UPPEXIN ---
HPI - Extremity Injury (Upper) General Chief Complaint: Extremity Injury, Upper Stated Complaint: left arm pain Time Seen by Provider: 07/04/25 15:15 Source: patient and RN notes reviewed Mode of arrival: ambulatory Limitations: no limitations History of Present Illness HPI narrative: 69-year-old female presents with concern for left shoulder pain for 2 months. She denies injury or trauma. She reports she has seen her primary care doctor for this, because she was having weakness in the extremity intermittently they worked her up for a stroke, she had a brain MRI and the carotid ultrasound which were both negative. She reports they told her they would refer her to Ortho but they have not. She has not had any imaging of the shoulder. She has tried multiple pain relief mother at home without relief. MD complaint: injury to: left Related Data Home Medications ?Medication ?Instructions ?Recorded ?Confirmed ?Last Taken ?Type glipizide 10 mg tablet 20 mg PO DAILY 01/26/22 06/28/23 Unknown History lisinopril 40 mg tablet 40 mg PO DAILY 01/26/22 06/28/23 Unknown History lovastatin 40 mg tablet 40 mg PO DAILY 01/26/22 06/28/23 Unknown History metformin 850 mg tablet 850 mg PO TID 01/26/22 06/28/23 Unknown History amlodipine 10 mg tablet 10 mg PO DAILY 06/28/23 06/28/23 Unknown History Allergies Allergy/AdvReac Type Severity Reaction Status Date / Time No Known Allergies Allergy Verified 07/04/25 14:55 Review of Systems Review of Systems: CONSTITUTIONAL: Denies malaise, chills, sweats, or fever. SKIN: Denies rash or itching, open skin, laceration, abrasion, redness, warmth, swelling. MUSCULOSKELETAL: Reports left shoulder pain NEUROLOGIC: Denies numbness, weakness All systems reviewed & are unremarkable except as noted in HPI and below PMFSH Past Medical History Medical History Diabetes Elevated cholesterol Fracture of left hand Hypertension Surgical History Surgical History No history of previous surgery Social History Social History Smoking packs per day: 2 Smoking cigarettes per day: 40.0 Years smoked: 36 Smoking pack-years: 72.00 Smoking status: Current every day smoker Tobacco type: cigarettes Alcohol intake: current Alcohol use details: rare Substance use: never Living arrangements: with family Gender identity (if verbalized by the patient): Female Comments At time of signature, agree with nursing past medical, surgical, social and family history. There is no relevant family history pertinent to the presenting complaint Exam Narrative: GENERAL: Well-appearing, well-nourished, and in no acute distress. HEAD: Normocephalic, atraumatic. EYES: PERRLA, conjunctivae clear NECK: Supple. CHEST: Speaks in full sentences. No respiratory distress. HEART: Regular rate and rhythm. Normal and equal peripheral pulses. EXTREMITIES: Left shoulder has grossly normal sensation, limited normal range of motion, strength 4/5 with abduction. No edema or ecchymosis. Normal sensation with sensitivity to light touch and pain. Shoulder joint tenderness. No open wounds, no skin tenting, no devitalized tissue or atrophy, no trophic changes, no obvious deformity, alignment normal, nearby joints and structures intact. Distal pulses palpable and equal bilaterally, skin warm, dry, pink. Capillary refill less than 3 seconds. SKIN: Warm, dry, no rash. NEURO: Alert and oriented x3. PSYCH: Normal mood and affect Course Course Emergency Course: Patient is aware of diagnosis, understands and agrees to treatment plan. Anticipatory guidance given. Patient agrees to follow-up as directed and is aware of reasons to seek care at the emergency department. Portions of this record may have been created with voice recognition software Level of Care: Express Care Visit Vital Signs Vital signs: Vital Signs Temperature 97.9 F 07/04/25 14:46 Pulse Rate 100 07/04/25 14:46 Respiratory Rate 18 07/04/25 14:46 Blood Pressure 150/76 H 07/04/25 14:46 Pulse Oximetry 100 07/04/25 14:46 Oxygen Delivery Room Air 07/04/25 14:46 Temperature 97.9 F 07/04/25 14:46 Pulse Rate 100 07/04/25 14:46 Respiratory Rate 18 07/04/25 14:46 Blood Pressure 150/76 H 07/04/25 14:46 Pulse Oximetry 100 07/04/25 14:46 Oxygen Delivery Room Air 07/04/25 14:46 Reviewed. MDM - Extremity Injury (Upper) MDM Narrative Medical decision making narrative: Patients pain is consistent with musculoskeletal etiology. No signs of neurological or vascular compromise on exam. Compartments and tissues are soft without signs of compartment syndrome. Pain is felt appropriate for further evaluation on an outpatient basis. Imaging Data My impression: Images reviewed, interpreted by radiologist, agree, see report. Radiologist's impression: EXAMINATION: XR shoulder LT min 2V, 07/04/2025 15:10 MEDICAL SECRETARY HISTORY: NKI, PROX HUMERUS PAIN W/MOVEMENT REFERRING DOWN COMPARISON: No comparisons available. Findings: No acute fracture or malalignment. No significant degenerative changes. Soft tissues unremarkable. Impression: No acute fracture or malalignment. Critical Care Time Critical Care Time Critical Care Time: No Discharge Plan Discharge Clinical Impression: Left shoulder pain Patient Disposition: Home Condition: Stable Instructions: Shoulder Pain (ED) Additional Instructions: Avoid activities that cause pain until the pain subsides. Ice to the area 20-30 minutes 4-6 times a day Sling as directed for comfort Tylenol for lesser pain Ibuprofen regularly for the next 2-3 days for the inflammation Follow up with your primary care provider if the condition is not improving within 1 week. If the condition worsens with numbness, tingling, decrease sensation with weakness seek treatment in the emergency room immediately. Patient Language: Maldivian Prescriptions: No Action amlodipine 10 mg tablet 10 mg PO DAILY glipizide 10 mg Tablet 20 mg PO DAILY lovastatin 40 mg Tablet 40 mg PO DAILY metformin 850 mg Tablet 850 mg PO TID lisinopril 40 mg Tablet 40 mg PO DAILY Follow-up/Referrals: Roni Denney MD [Physician, Orthopedics] Referral Note: 2 month left shoulder pain, limited ROM Tana,BUNNY Garcia [Primary Care Provider, Unknown] Time of Disposition: 15:36
== END 2025-07-04 15:50 | disposition home or self-care (01) ==
PROVIDERS: Emergency Provider Nurse Practitioner; PCP Nurse Practitioner Family
DX: M25.512 Pain in left shoulder (principal); F17.210 Nicotine dependence, cigarettes, uncomplicated; E11.9 Type 2 diabetes mellitus without complications; Z79.84 Long term (current) use of oral hypoglycemic drugs; I10 Essential (primary) hypertension; E78.00 Pure hypercholesterolemia, unspecified
CPT/HCPCS: 73030; 99213; A4565; G0463